=== PATIENT | male | born 1940 | race Caucasian/White ===

== ENCOUNTER 2019-08-12 10:52 | Inpatient (IN) | payer OTHER ==
[~2019-08-12] VITALS: Ht 172.7 cm; Wt 97.3 kg
--- NOTE | ~2019-08-12 | HC ---
[facility] [address] [place] [address] CONSULTATION Name: HORACE NAIR Room #: 354-P ADM IN .R.#: [id number] Admission: 08/12/19 Attend Phys: Wilmar Chaparro MD Discharge: Date of : 42 Report #: [id number] THIS REPORT FOR: //name// CC: Topher Gill DATE OF SERVICE: 08/12/2019 NEPHROLOGY CONSULTATION REASON FOR CONSULTATION: Elevated creatinine and volume overload. HISTORY OF PRESENT ILLNESS: This is a 79-year-old male with multiple chronic medical conditions. Briefly those include some coronary artery disease, chronic kidney disease, chronic hypertension, peripheral vascular disease, type 2 diabetes and some apparent COPD. His most recent history is that of worsening peripheral vascular disease. In 04/2019, he had a right fem-pop bypass done by Dr. Murali Brown at [facility]. He was discharged from there and spent some time at a [facility]. He was readmitted after that in early 06/2019 and had a left fem-pop bypass done as he done fairly well with the right side. Shortly after that, he developed infection of the surgical wound in the left inguinal area and got readmitted to the hospital. According to the son, cultures were negative, but he was placed on broad-spectrum antibiotics and improved. By the end of June, he was discharged back from [facility], but developed C. diff diarrhea. He was admitted to the [facility] and started on oral vancomycin for the C. diff. He is now just a couple of days from completing that course of therapy and states that his diarrhea has improved. In the meantime, he started having increasing amounts of edema, abdominal distention and now dyspnea. All of this worsened to the point that he was admitted 2 days ago to the [facility]. He has a chronic creatinine level of about 2.1, but his creatinine level has been more in the 3.6-3.9 range. For some reason, he was given IV fluid in spite of the fact that he is massively edematous and dyspneic. With that fluid, he has become yet more dyspneic. His urine output has been down. Additionally, he has had a Diggs catheter placed as he has intermittent problems with poor bladder emptying. He also had a urinalysis done at [facility] showing Klebsiella urinary tract infection, which was widely sensitive. As things continue to worsen, he was transferred here to [facility] this afternoon for increased amounts of care. From a renal standpoint, the patient has previously documented chronic kidney disease. He knows that his baseline creatinine level is 2.1. He was followed for years by Dr. Darrian Veronica at [facility] and more recently over the past couple of years by Dr. Payne in [place]. He never recalls having this much edema previously. He never recalls having this much dyspnea. [address] [address] CONSULTATION Name: HORACE NAIR Room #: 354-P ADM IN M.R.#: [id number] Admission: 08/12/19 Attend Phys: Wilmar Chaparro MD Discharge: Date of : 42 Report #: [id number] Unfortunately, I do not have records to the [facility] hospitalization at this point. He does not recall having arteriography prior to that, but there was some basis for doing the bilateral fem-pop bypasses. He says he has had the catheter in for the past couple of days. He has not been getting any nonsteroidals. I cannot find evidence of other nephrotoxic agents. PAST MEDICAL HISTORY: Longstanding CKD as noted above, coronary artery disease. He had previous coronary artery bypass graft surgery that was a four vessel bypass done years ago. He has had the recent bilateral fem-pop bypasses. He has had previously documented episodes of congestive heart failure and worsening pulmonary status as noted above. MEDICATIONS: As listed from [facility] include amlodipine 5 mg daily, aspirin 81 mg daily, atorvastatin 40 mg daily, Plavix 75 mg daily, insulin, Lasix 40 mg daily, multivitamin daily, pantoprazole 40 mg daily, some eyedrops, Proventil inhaler, tamsulosin 0.4 mg daily, Toprol 25 mg daily, oral vancomycin 250 mg 4 times daily and vitamin D. ALLERGIES: Reactions to AMIODARONE, NIACIN and HYDROCODONE. FAMILY HISTORY: No known renal disease. Father had colon cancer. Mother had a stroke. SOCIAL HISTORY: The patient is and lives in [place], [place]. He is retired. A couple of sons and a couple of grandchildren are present in the room at this time. REVIEW OF SYSTEMS: Widely positive. He has had the increasing dyspnea. He has chronic cough. He has had increasing abdominal distention and girth. He has had increasing peripheral edema both of the upper and lower extremities. His diarrhea has subsided. His appetite has been down. He is unaware of fevers, chills or sweats. He has trouble voiding and had the Digsg catheter placed. He has been increasingly weak. Denies actual chest pain. PHYSICAL EXAMINATION: VITAL SIGNS: Heart rate is 80. On exam, respiratory rate 24 and moderately labeled. Blood pressure 108/75, oxygen saturation 96% on 4 liters per nasal cannula HEENT: Shows bilateral chronic capsule exophthalmos. Pupils are equal and reactive. Oral mucosa is moist without lesions. NECK: Veins shows possible distention on the right, but he has a very large neck, it is difficult to determine. Neck is otherwise unremarkable. CHEST: Shows bilateral decreased breath sounds with rales. CARDIOVASCULAR: Heart has a regular rate and rhythm with distant heart tones. ABDOMEN: Obese and distended. There is extensive abdominal wall edema present. There also appears to be a fluid wave present. Few bowel sounds are present. [facility] [address] [place] [address] CONSULTATION Name: HORACE NAIR Room #: 354-P ADM IN [facility] [place].#: [id number] Admission: 08/12/19 Attend Phys: Wilmar Chaparro MD Discharge: Date of : 42 Report #: [id number] Not dramatically tender. EXTREMITIES: Show 2+ bilateral upper extremity and 3+ bilateral lower extremity edema and scrotal edema. Both feet and toes are warm. I see no blue toes. Bilateral fem-pop incisions have healed other than a 1 cm area in the left inguinal area. LABORATORY AND DIAGNOSTIC DATA: Sodium 136, potassium 4.7, chloride 104, bicarbonate 19, BUN 96, creatinine 3.7, calcium 7.8, phosphorus 6.1, magnesium 2.0, total protein 6.2, albumin 2.5, AST 83, ALT 199. White count 10.6, hemoglobin 8.9, hematocrit 27.9. Differential on the white count, 79 neutrophils, 7 lymphs, 9 monocytes. TSH 2.33. Urinalysis not yet back. Chest x-ray not yet done. ASSESSMENT: 1. Massive volume overload in the face of chronic kidney disease with worsening creatinine level. He has anasarca. He is dyspneic. We will look at his chest x-ray as he likely has some pulmonary edema. He needs aggressive diuresis. He certainly does not need additional IV fluids at this point. He has been given a bolus of Lasix already ordered by Dr. Toro. I will start him on a continuous infusion of furosemide at 10 mg per hour. He has a Diggs catheter and we will closely monitor urine output. He will continue on nasal oxygen. As far as his kidney function goes, his creatinine level is elevated over his baseline. He has been through 2 recent vascular surgeries, a postop wound infection, C. diff and now this episode. He very well, knows his baseline creatinine is 2.1. Remarkably, he has no blue toes. We will have to access his [facility] records to see what else went on with all of that as to whether he has had additional risk of cholesterol emboli or any other changes to his kidneys from nephrotoxic exposures. There is a possibility, but we can get him well diuresed with IV Lasix alone. We can always add some metolazone, but if that does not occur, he might need some dialysis for ultrafiltration. I do not think we are looking at dialysis right now, but we will certainly keep that in mind going forward. Hopefully, we can get him adequately diuresed. 2. Congestive heart failure with lung findings suggesting pulmonary edema. If he gets at all unstable, we will move him to the ICU. 3. Recent Clostridium difficile. He is completing therapy. He is less symptomatic and certainly his abdomen does not look to be toxic. 4. Recent bilateral fem-pop bypasses with infection of the left side, both legs are warm at this time. 5. History of chronic obstructive pulmonary disease only making his pulmonary status worse. 6. Congestive heart failure as noted. 7. Prior history of coronary artery bypass graft surgery. PLAN: 1. We will start him on the Lasix drip at 10 mg per hour. 2. Closely monitor intake and output. [facility] [address] [place] [address] CONSULTATION Name: HORACE NAIR Room #: 354-P [facility] IN .R.#: [id number] Admission: 08/12/19 Attend Phys: Wilmar Chaparro MD Discharge: Date of : 42 Report #: [id number] 3. With the recent urinary tract infection with Klebsiella and its sensitivity to Cipro, put him on oral Cipro and hopefully we would not exacerbate his C. diff to much with more broad-spectrum antibiotics. 4. Closely monitor electrolytes and hemodynamics. 5. We will follow along with this very ill patient. By: 1858 01 Gurpreet Wilkins MD /nt
[2019-08-12 15:00] VITALS: BP 108/75
[2019-08-12] MEDS ORDERED: ATHENOL325 MG PO (15:36)
[2019-08-12] MEDS ORDERED: CEFTRIAXON1 GM/50 ML IV (15:37)
[2019-08-12] MEDS ORDERED: VISBIOME 112.51 EACH PO (15:40)
[2019-08-12] MEDS ORDERED: ONDANSETRON4 MG/2 ML IV (15:41)
[2019-08-12] MEDS ORDERED: PROAIR HFA8.5 GM INH (15:42)
[2019-08-12] MEDS ORDERED: FLOMAX0.4 MG PO (15:42)
[2019-08-12] MEDS ORDERED: LANTUS SUBQ (15:43)
[2019-08-12] MEDS ORDERED: PROTONIX40 M2 PO (15:44)
[2019-08-12] MEDS ORDERED: TOPROL XL25 MG PO (15:44)
[2019-08-12] MEDS ORDERED: VANACOF DM LIQ240 ML PO (15:45)
[2019-08-12] MEDS ORDERED: IPRAT-ALBUT 0.5-3 ML INH (15:50)
[2019-08-12] MEDS ORDERED: DORZOLAMIDE 2%10 ML EA. EYE (16:30)
[2019-08-12] MEDS ORDERED: BRIMONIDINE TART5 ML EA. EYE (16:34)
[2019-08-12] MEDS ORDERED: LATANOPROST EA. EYE (16:36)
[2019-08-12 16:40] LABS: ABSOLUTE NEUTROPHILS 8.4 thou/uL (1.4-8.2); BASOPHILS 0.9 % (0.0-2.0); EOSINOPHILS 2.8 % (0.0-3.0); HEMATOCRIT 27.9 % (42.0-52.0); HEMOGLOBIN 8.9 gm/dL (14.0-18.0); LYMPHOCYTES 7.4 % (24.0-44.0); MCH 30.3 pg (26.0-34.0); MCHC 31.8 g/dL (28.0-37.0); MCV 95.2 fL (80.0-100.0); PLATELET COUNT 211 thou/uL (150-400); POLYS 79.9 % (36.0-66.0); RBC 2.93 mil/uL (4.50-6.00); WBC 10.6 thou/uL (4.0-11.0)
[2019-08-12] MEDS ORDERED: NORVASC 2.5 MG2.5 M1 PO (16:53)
[2019-08-12] MEDS ORDERED: ASA81BEC PO (16:54)
[2019-08-12 16:55] LABS: APTT 26.7 Seconds (24.5-32.8); INR 1.1; PROTIME 11.7 Seconds (9.3-11.4)
[2019-08-12] MEDS ORDERED: PLAVIX 75 MG TA75 MG PO (16:55)
[2019-08-12] MEDS ORDERED: VITAMIN D3 PO (17:00)
[2019-08-12 17:02] LABS: ALBUMIN 2.5 g/dL (3.4-5.0); ANION GAP 13 mmol/L (7-16); BUN 96 mg/dL (7-18); CALCIUM 7.8 mg/dL (8.5-10.1); CHLORIDE 104 mmol/L (98-107); CO2 19 mmol/L (21-32); CREATININE 3.7 mg/dL (0.7-1.3); GLUCOSE 182 mg/dL (74-106); PHOSPHORUS 6.1 mg/dL (2.5-4.9); POTASSIUM 4.7 mmol/L (3.5-5.1); SGOT 83 U/L (15-37); SGPT 199 U/L (30-65); SODIUM 136 mmol/L (136-145); TOTAL BILIRUBIN 0.6 mg/dL (<0.1-1.0); TOTAL PROTEIN 6.2 g/dL (6.4-8.2); TROPONIN-I <0.06 ng/mL (<0.06)
--- NOTE | 2019-08-12 17:47 | NUR ---
PATIENT ADMIT TO UNIT AT 1500. A/O X4. SOB WITH ANXIOUS. ASKING 3L/NC. ASSISTED TO BSC HAS BM THAT IS FORMED. PATIENT DENIES PAIN. MULTI CONSULT CALLED. FAMILY AT BEDSIDE. WILL KEEP MONITOR.
[2019-08-12 19:06] LABS: % SATURATION 11 % (20-39); IRON 27 ug/dL (65-175); TIBC 241 ug/dL (250-450)
[2019-08-12 19:42] VITALS: BP 131/53
[2019-08-12 19:43] LABS: URINE BILIRUBIN NEGATIVE (Negative); URINE BLOOD 3+ (Negative); URINE CLARITY CLEAR; URINE COLOR YELLOW; URINE GLUCOSE-RANDOM* NEGATIVE (Negative); URINE KETONES NEGATIVE (Negative); URINE NITRITE-REFLEX NEGATIVE (Negative); URINE PROTEIN (DIPSTICK) 2+ (Negative); URINE SPECIFIC GRAVITY 1.025 (1.005-1.035); URINE UROBILINOGEN 0.2 E.U./dl (0.2-1.0)
[2019-08-12 19:49] LABS: URINE LEUKOCYTES-REFLEX 1+ (Negative)
[2019-08-12 20:18] LABS: HYALINE CASTS 0-3 Few /LPF (None Seen); SQUAMOUS 0-3 Few /LPF (0-3)
[2019-08-12 20:19] LABS: URINE RBC 3-10 Few /HPF (0-2); URINE WBC-REFLEX 6-15 Few /HPF (0-5)
[2019-08-12 20:20] LABS: AMORPHOUS URATES Few /LPF (None Seen); BACTERIA-REFLEX 1-9 Few /HPF (None Seen)
[2019-08-13 00:39] VITALS: BP 151/49
--- NOTE | 2019-08-13 02:58 | NUR ---
PT WAS DIRECT ADMIT FROM [facility]. PT HAS HIGH LEVEL OF ANXIETY WITH CREATES SELF DEFEATING BEHAVIORS. PT REMOVES CPAP AND IS RESTLESS. ORDERED HS DOSE OF 1MG ATIVAN. GAVE SOME RELIEF FOR A COUPLE HOURS, THEN BACK TO SAME BEHAVIORS. EDUCATED PT ON CONSTRUCTIVE BEHAVIORS THAT WILL HELP REDUCE ANXIETY, BUT NOT EFFECTIVE. PT A/OX4, AND UP WITH X1 TO BSC. POC WITH IVF LASIX STARTED. HOURLY ROUNDING.
[2019-08-13 05:30] VITALS: BP 142/53
[2019-08-13 06:15] LABS: CALCIUM 8.4 mg/dL (8.5-10.1); CREATININE 3.8 mg/dL (0.7-1.3)
[2019-08-13 08:09] VITALS: BP 112/81
--- NOTE | 2019-08-13 09:34 | 2DMMODE ---
[facility] [address] [place] [address] 2 D/M-MODE ECHOCARDIOGRAM Name: HORACE NAIR Room #: 354-P [facility] IN .R.#: [id number] Admission: 08/12/19 Attend Phys: Wilmar Chaparro MD Discharge: Date of : 42 Report #: [id number] THIS REPORT FOR: //name// APPROVED REPORT Study performed: 08/13/2019 08:18:08 EXAM: Comprehensive 2D, Doppler, and color-flow Echocardiogram Patient Location: Bedside Room #: 354 Status: routine BSA: 1.86 HR: 77 bpm BP: 142/53 mmHg Rhythm: NSR Other Information Study Quality: Technically Difficult and Technically Limited Technically limited study due to body habitus, uncooperative patient, inability to position patient. Indications Congestive Heart Failure Diabetes Dyspnea CAD Hypertension/HDD HLD Echo Enhancing Agent Indication: Endocardial border delineation Agent(s) / Amount(s) Used: Optison 3 cc 2D Dimensions RVDd: 47.31 mm IVSd: 13.44 (7-11mm) LVOT Diam: 19.71 (18-24mm) LVDd: 53.75 mm PWd: 13.71 (7-11mm) Ascending Ao: 30.53 (22-36mm) LVDs: 34.75 (25-40mm) Aortic Root: 28.86 mm IVC: 24.00 mm Volumes Left Atrial Volume (Systole) Single Plane 4CH: 63.23 mL Single Plane 2CH: 96.37 mL [facility] [place] [address] 2 D/M-MODE ECHOCARDIOGRAM Name: HORACE NAIR Room #: 354-P ADM IN .R.#: [id number] Admission: 08/12/19 Attend Phys: Wilmar Chaparro MD Discharge: Date of : 42 Report #: [id number] ESV Index: 46.00 mL/m2 Aortic Valve AoV Peak Andres.: 2.30 m/s AO Peak Gr.: 21.21 mmHg LVOT Max P.22 mmHg AO Mean Gr.: 8.17 mmHg LVOT Mean P.51 mmHg AO V2 Mean: 1.28 m/s LVOT Max V: 1.14 m/s AO V2 VTI: 45.10 cm LVOT Mean V: 0.74 m/s ASHA (VTI): 1.77 cm2 LVOT V1 VTI: 26.21 cm ASHA Vmax: 1.51 cm2 AI Vmax: 3.42 m/s SV (LVOT): 79.91 mL AI Starke: 4.89 m/s2 AI PHT: 202.79 ms Mitral Valve E/A Ratio: 1.1 MV Decel. Time: 255.53 ms MV E Max Andres.: 1.39 m/s MV A Andres.: 1.25 m/s MV PHT: 74.10 ms IVRT: 86.51 ms Pulmonary Valve PV Peak Andres.: 1.17 m/s PV Peak Gr.: 5.60 mmHg Pulmonary Vein P Vein S: 0.53 m/s P Vein A: 0.22 m/s P Vein D: 0.64 m/s P Vein A Dur.: 96.9 msec P Vein S/D Ratio: 0.83 Tricuspid Valve TR Peak Andres.: 3.04 m/s RAP Estimate: 15.00 mmHg TR Peak Gr.: 36.99 mmHg PA Pressure: 52.00 mmHg Left Ventricle The left ventricle is normal size. Regional wall motion is not well visualized but grossly normal. Mild concentric left ventricular hypertrophy. The left ventricular systolic function is normal. The left ventricular ejection fraction is within the normal range. LVEF is 50%. Moderate diastolic dysfunction is present (pseudonormal filling). Right Ventricle Right ventricle is moderately dilated. Right ventricular systolic function is mildly reduced. [facility] [address] [place] [address] 2 D/M-MODE ECHOCARDIOGRAM Name: HORACE NAIR Room #: 354-P [facility] IN .R.#: [id number] Admission: 08/12/19 Attend Phys: Wilmar Chaparro MD Discharge: Date of : 42 Report #: [id number] Atria Left atrium is moderately dilated. Right atrium is mildly dilated. Aortic Valve Aortic valve is mild-moderately calcified. Mild to moderate aortic regurgitation. There is trace to mild valvular aortic stenosis. Calculated aortic valve area is 1.8 cm2 with maximum pressure gradient of 21 mmHg and mean pressure gradient of 8 mmHg. Mitral Valve Mild mitral annular calcification. Trace to mild mitral regurgitation. No evidence of mitral valve stenosis. Tricuspid Valve The tricuspid valve is normal in structure. Moderate tricuspid regurgitation. PAP is estimated at 50 mmHg Pulmonic Valve Pulmonic valve is not well visualized. Great Vessels The aortic root is normal in size. IVC is dilated and collapses <50% with inspiration. Pericardium There is no pericardial effusion. <Conclusion> The left ventricular systolic function is normal. Regional wall motion is not well visualized but grossly normal. LVEF is 50%. Moderate diastolic dysfunction Aortic valve is mild-moderately calcified, mildly stenotic Mild to moderate aortic regurgitation. Calculated aortic valve area is 1.8 cm2 with maximum pressure gradient of 21 mmHg and mean pressure gradient of 8 mmHg. Mild mitral annular calcification. Trace to mild mitral regurgitation. Moderate tricuspid regurgitation. Pulmonary artery pressure estimated [address] [address] 2 D/M-MODE ECHOCARDIOGRAM Name: HORACE NAIR Room #: 354-P [facility] IN M.R.#: [id number] Admission: 08/12/19 Attend Phys: Wilmar Chaparro MD Discharge: Date of : 42 Report #: [id number] at 50 mmHg There is no pericardial effusion. <ELECTRONICALLY SIGNED> By: Matheus Toro MD, FAC 08/13/19932 2 2 Matheus Toro MD, FAC /INF
--- NOTE | 2019-08-13 09:44 | EKG ---
[address] [place] [address] ELECTROCARDIOGRAM REPORT Name: HORACE NAIR Room #: 354-P ADM IN M.R.#: [id number] Admission: 08/12/19 Attend Phys: Wilmar Chaparro MD Discharge: Date of : 42 Report #: [id number] THIS REPORT FOR: //name// [facility] Test Date: 2019-08-12 Test Time: 18:11:15 Pat Name: HORACE NAIR Department: Room: 354 P Gender: M Buffing Line Set Up Worker: Vincent LOFTON : 1940 Requested By: Matheus Toro Order Number: [id number] MD: Matheus Toro Measurements Intervals [place] Rate: 71 P: 44 [place]: 156 QRS: 54 QRSD: 143 T: 32 QT: 448 QTc: 487 Interpretive Statements Sinus rhythm Atrial premature complex IVCD, consider atypical RBBB Poor R wave progression Compared to ECG 11/10/2007 12:18:39 Atrial premature complex(es) now present Right bundle branch block is now present Electronically Signed On 08-13-2019 9:43:48 EVENT MANAGEMENT CONSULTANT by Matheus Toro [email or web address] <ELECTRONICALLY SIGNED> By: Matheus Toro MD, [facility] 08/13/19 0943 10 10 Matheus Toro MD, [facility] /EPI
[2019-08-13 12:01] VITALS: BP 106/55
--- NOTE | 2019-08-13 14:06 | NUR ---
DISCHARGE PLANNING. DISCHARGE DATE NOT STATED AT THIS TIME. POST ACUTE RECOMMENDED AT DISCHARGE. PATIENT REFERRAL FAXED TO [facility] PER REQUEST. CALL PLACED TO MARK NAJERA, DEVELOPMENT REP, FOR [facility] TO NOTIFY OF PATIENTS REFERRAL. VOICEMAIL LEFT FOR HER. UNIT SW AWARED. FOLLOWING TO ASSIST.
--- NOTE | 2019-08-13 14:23 | NUR ---
INITIAL ASSESSMENT: Received consult for discharge planning. ANAMIKA reviewed chart and spoke with nursing and attending physician. Pt was transferred to [facility] from [facility] due to hypoxic respiratory failure/SCOTT/CKD/Anemia. GI and Nephrology consulted. Pt is on lasix gtt and may need to start dialysis pending renal function. ANAMIKA met with pt and at bedside. Introduced role of SW. Pt was sleeping on/off during SW visit. Pt's provided info. Pt is normally alert/orientated x 4. [place] Prior to admission, pt was using a walker. Pt has a cpap machine at home provide by [facility] ( ). Pt's states pt's cpap machine stopped working yesterday and needs to be repaired. Pt was not on O2 prior to admission. Pt's states that they have not had HH in the past, as HH providers do not service the area where pt and spouse live. SW confirmed pt's home address. Pt's PCP is Dr. Topher Ugarte. Pt's states that pt has been to the swing bed unit at [facility], and they would prefer to go there if possible. Will need insurance authorization. Unsure of discharge timeframe. marketing planner to fax info to [facility] swing bed intake. Awaiting additional therapy notes. ANAMIKA spoke with Nicole at [facility], who confirm pt is on service with them. They will repair pt's home cpap machine and provide a loaner to pt to use in the meantime. Lengthy conversation with pt's regarding medical condition/complications since surgery in April at [facility]. Pt's states that he has been in/out of hospitals since that time, and they are hoping pt will be able to improve and eventually return to his prior level of functioning. ANAMIKA is following to assist as needed with discharge planning.
--- NOTE | 2019-08-13 15:20 | NUR ---
ASSUMED CARE OF PT AT 0700. PT AOX3 RESTLESS ANXIOUS BUT COOPERATIVE. ON 2LNC/CPAP THROUGHOUT DAY. PRESENT AT BEDSIDE. NO STOOLS. SPEECH EVAL REC NECTAR FLUIDS. SINUS ON TELEMETRY. UP W/ ASSIST TO BSC. MANY CONSULTS TODAY. PT PROGRESSING TOWARD POC GOALS.
[2019-08-13 15:46] VITALS: BP 123/48
[2019-08-13 19:11] VITALS: BP 127/50
[2019-08-14] MEDS ORDERED: ULTRAM50 MG PO (00:48)
[2019-08-14 04:30] VITALS: BP 123/59
[2019-08-14 04:52] LABS: ALBUMIN 2.6 g/dL (3.4-5.0); CALCIUM 8.4 mg/dL (8.5-10.1); CREATININE 3.8 mg/dL (0.7-1.3); PHOSPHORUS 6.7 mg/dL (2.5-4.9); POTASSIUM 5.1 mmol/L (3.5-5.1)
--- NOTE | 2019-08-14 05:49 | NUR ---
ASSUMED CARE AT 1900. OBTAINED ORDERS FOR MELATONIN TO HELP PT SLEEP FAMILY DIDN'T WANT HIM TAKING ATIVAN, STATING IT MADE PT MORE CONFUSED. AT MIDNIGHT ASSESSMENT, PT C/O OF LEFT HIP PAIN; OBTAINED ORDERS FOR TYLENOL AND TRAMADOL; GAVE ONE DOSE OF TRAMADOL OVERNIGHT, PT REPORTED PAIN RELIEF. PT GRADUALLY MORE CONFUSED OVERNIGHT, AFTER [id number], KEPT TAKING CPAP OFF, WANTING HIS LY OUT, TOSSING BLANKETS ON THE FLOOR, ETC. PT REQUIRED FREQ REORIENTATION AND EXPLANATION ABOUT LIMITING FLUIDS, ONLY DRINKING THICKENED LIQUIDS TO PREVENT ASPIRATION, AND NEEDING ACCURATE I&O WITH THE LASIX DRIP AND LY. NO OTHER CONCERNS, WILL CONTINUE TO MONITOR.
[2019-08-14 08:09] VITALS: BP 123/46
--- NOTE | 2019-08-14 09:14 | NUR ---
WOUND CONSULT; ASSESSED THE LEFT MEDIAL LEG AND THE LEFT GROIN/ABD FOLD. THE LEFT MED LEG IS HEALED ONLY VIABLE SCABS REMAIN. THE LEFT GROIN WOUNDBED IS SLOUGHY. NO ERYTHEMA OR ANY S/S OF INFECTION. RECOMMENDATION; THERAHONEY TO LEFT GROIN, COVER WITH A BOARDER FOAM M/W/F RN NOTIFIED
[2019-08-14 11:41] VITALS: BP 134/50
[2019-08-14 11:49] LABS: HEMATOCRIT 26.1 % (42.0-52.0); HEMOGLOBIN 8.3 gm/dL (14.0-18.0)
--- NOTE | 2019-08-14 15:24 | NUR ---
SW reviewed chart and spoke with nursing and attending physician. Pt remains on lasix gtt. No weekend discharge planned. Pt and request pt go to [facility] Swing Bed Unit. enterprise resource planner to follow up with intake at [facility]. ANAMIKA is following to assist as needed with discharge planning.
[2019-08-14 16:12] VITALS: BP 140/54
--- NOTE | 2019-08-14 18:30 | NUR ---
PATIENT GETTING MORE ALERT TODAY. UP WALK WITH PT, ON LASIX GTT. SLOWLY TOWARDS POC GOALS.
[2019-08-14 19:33] VITALS: BP 132/53
[2019-08-14] MEDS ORDERED: TIMOLOL MALEATE5 M2 OPHTHALMIC (20:09)
--- NOTE | 2019-08-15 02:50 | NUR ---
ASSUMED CARE AT 1900. PT HAS IMPROVED MENTATION THIS SHIFT, ANSWERING QUESTIONS APPROPRIATELY, LESS IMPULSIVE BEHAVIORS. REPORTS SOME SOB EVEN AT REST, IMPROVED WHEN ON THE CPAP RATHER THAN JUST NC. REPORTS MODERATE PAIN IN LEFT HIP AND KNEE, GAVE TRAMADOL WITH HS MEDS. HS BLOOD SUGAR WAS 97, NO INSULIN GIVEN. CHECKED HOME MEDS INTO THE PHARMACY; OBTAINED ORDERS TO START HOME EYE DROP REGIMEN. HAS SMALL, DARK STOOLS. LY PUTTING OUT OSEGUERA COLORED URINE, IV LASIX INFUSING. NO FURTHER CONCERNS, WILL CONTINUE TO MONITOR.
[2019-08-15 03:21] VITALS: BP 125/39
[2019-08-15 03:56] LABS: ALBUMIN 2.5 g/dL (3.4-5.0); CREATININE 3.8 mg/dL (0.7-1.3); PHOSPHORUS 6.4 mg/dL (2.5-4.9); POTASSIUM 4.5 mmol/L (3.5-5.1)
[2019-08-15 03:58] LABS: HEMOGLOBIN 8.5 gm/dL (14.0-18.0); MCH 29.9 pg (26.0-34.0); MCHC 31.6 g/dL (28.0-37.0); MCV 94.7 fL (80.0-100.0); RBC 2.84 mil/uL (4.50-6.00); RDW 18.9 % (10.5-14.5); WBC 7.2 thou/uL (4.0-11.0)
--- NOTE | 2019-08-15 07:39 | NUR ---
patient is alert to self, situation. patient has lasix drip and layton. patient is anxious to discharge home. patients dressing is clean dry and intact. patient is on 3l nc and c pap hs. patient is achs accuchecks. patient is resting comfortably in bed. pain treated with medication. wcm.
[2019-08-15 07:47] VITALS: BP 120/52
[2019-08-15 11:57] VITALS: BP 122/36
[2019-08-15 12:39] LABS: BE(vivo) -8.6 mmol/L (-2 to +3); HCO3 16.9 mmol/L (22.0-26.0); PCO2 34.7 mmHg (35.0-45.0); PO2 68.9 mmHg (80.0-100.0); sO2 92.4 % (92.0-98.0)
[2019-08-15 12:43] LABS: pH 7.305 (7.360-7.450)
[2019-08-15 16:12] VITALS: BP 142/54
[2019-08-15 19:40] VITALS: BP 136/57
--- NOTE | 2019-08-15 20:44 | NUR ---
PATIENT ALERT AND ORIENTED WITH SON AND [id number] AT BEDSIDE. WEIGHT COMPLETED AFTER BREAKFAST. 254LBS. CONTINUES ON DIURETICS AND HAS GOOD URINE OUTPUT AND ABLE TO WALK TO BATHROOM FOR BM. BM TODAY AND SMALL FORMED STOOL. PATIENT UP TO CHAIR THIS AM.
[2019-08-16 03:53] LABS: HEMATOCRIT 26.9 % (42.0-52.0); HEMOGLOBIN 8.5 gm/dL (14.0-18.0); MCH 30.2 pg (26.0-34.0); MCHC 31.7 g/dL (28.0-37.0); MCV 95.3 fL (80.0-100.0); RBC 2.83 mil/uL (4.50-6.00); RDW 18.8 % (10.5-14.5); WBC 6.8 thou/uL (4.0-11.0)
[2019-08-16 04:01] LABS: ALBUMIN 2.6 g/dL (3.4-5.0); CALCIUM 8.3 mg/dL (8.5-10.1); CREATININE 3.8 mg/dL (0.7-1.3); PHOSPHORUS 6.8 mg/dL (2.5-4.9); POTASSIUM 4.4 mmol/L (3.5-5.1)
--- NOTE | 2019-08-16 04:11 | NUR ---
ASSUMED CARE AT 1900. PT MORE ANXIOUS THIS SHIFT THAN PREVIOUS NIGHT, WITH INCREASING CONFUSION DURING THE NIGHT. SLEEPING POORLY DESPITE TWO DOSES OF MELATONIN, AWAKE FREQ AND CALLING OUT. UP MULTIPLE TIMES TO BSC FOR BM, USUALLY HAVING VERY SMALL FORMED BALLS OF STOOL, BUT HAVE A MEDIUM SOFT/FORMED STOOL ONE TIME. IV LASIX INFUSING AT 20 ML/HR, LY DRAINING YELLOW URINE. GAVE TRAMADOL x1 FOR LEFT HIP PAIN. NO FURTHER CONCERNS, WILL CONTINUE TO MONITOR.
[2019-08-16 04:30] VITALS: BP 131/67
[2019-08-16 07:31] VITALS: BP 133/46
[2019-08-16 11:42] VITALS: BP 127/43
[2019-08-16 15:19] VITALS: BP 126/49
--- NOTE | 2019-08-16 18:05 | NUR ---
A/O X4. ON LASIX GTT AT 22OML /HR. UP WITH ASSISTED .PROGRESSING TOWARDS POC GOALS.
[2019-08-16 19:20] VITALS: BP 126/45
[2019-08-17 04:44] VITALS: BP 133/49
--- NOTE | 2019-08-17 04:48 | NUR ---
PT MAKING PROGRESS TOWARDS GOALS. LUNGS REPORTEDLY COARSE. ONLY NOTED DIMINISHED LUNG SOUNDS OVERNIGHT. PT HAS DENIED ANY SOA AT REST. UP TO CHAIR THIS MORNING WITH O2 AT 2L PER NC WITH NO OBSERVABLE SOA TRANSFERING TO THE CHAIR.
[2019-08-17 05:59] LABS: ALBUMIN 2.6 g/dL (3.4-5.0); CALCIUM 8.3 mg/dL (8.5-10.1); CREATININE 3.7 mg/dL (0.7-1.3); PHOSPHORUS 6.2 mg/dL (2.5-4.9); POTASSIUM 3.8 mmol/L (3.5-5.1)
[2019-08-17 07:57] VITALS: BP 134/55
--- NOTE | 2019-08-17 10:31 | NUR ---
WOUND CARE F/U assessed wounds w/ operations staff specialist security CYRUSOLA, left groin wound healing, scant whitish yellow slough in wound,more pink viable tissue present, thigh wounds healing,dry scabs present, leave open to air, pt cooperative RECOMMENDATIONS; cont w/ therahoney to wound left groin, 3x week and prn, cont on low air loss mattress pump, operations staff specialist security aware
[2019-08-17 11:32] VITALS: BP 139/49
--- NOTE | 2019-08-17 15:14 | NUR ---
SW reviewed chart and spoke with nursing and attending physician. Pt is slowly progressing towards goals for discharge. Pt remains on IV lasix. logistics planner faxed clinical/therapy updates to [facility] for review. ANAMIKA met with pt and at bedside. Pt just worked with physical therapy. Pt's asked about pt being evaluated for 5N. Pt's is hopeful that pt will qualify, as he has had multiple hospitalization over the past several months. ANAMIKA explained admission criteria for 5N and need for insurance authorization. Pt and verbalized understanding. ANAMIKA requested 5N consult from attending physician. ANAMIKA notified 5N vocational rehabilitation specialist of new referral/consult. 5N rehab physician or PAYROLL SUPERVISOR to evaluate pt tomorrow. ANAMIKA is following to assist as needed with discharge planning.
--- NOTE | 2019-08-17 18:35 | NUR ---
ASSUMED CARE @ 0700 08/17/19, ASSESSMENTS AND VSS COMPLETE PER CCTELE ORDERS. DR NOBLE AND GIANFRANCO HERE DURING THE DAY TO SEE PT. WOUND CHANGED BY WOUND CARE NURSE. PROGRESSING TOWARDS PLAN OF CARE
[2019-08-17 19:13] VITALS: BP 152/62
[2019-08-18 03:37] VITALS: BP 134/50
[2019-08-18 07:51] VITALS: BP 135/76
[2019-08-18 07:58] LABS: ALBUMIN 2.9 g/dL (3.4-5.0); CALCIUM 9.1 mg/dL (8.5-10.1); CREATININE 3.5 mg/dL (0.7-1.3); PHOSPHORUS 6.3 mg/dL (2.5-4.9); POTASSIUM 3.7 mmol/L (3.5-5.1)
--- NOTE | 2019-08-18 09:51 | NUR ---
PATIENT SEEN THIS DATE BY [facility] [employer] WITH DR. RUSH. PATIENT IS A CANDIDATE [place] [address] [place] [address]. PATIENT HAS [employer] ADVANTAGE PLAN. AUTHORIZATION PROCESS INITIATED THIS DATE. BROCHURE TAKEN TO PATIENT/FAMILY BY LIAISON. HUC INFORMED.
--- NOTE | 2019-08-18 10:54 | NUR ---
NUTRITION RECOMMENDATIONS: 1) Recommend considering addition of phosphate binder w/ meals due to peristently elevated phos labs ranging 6.2-6.8 mg/dl in recent days. 2) Consider adding low phos, low sodium restrictions to diet order. 3) RD will limit meals to 1 dairy serving/day while phos remains HIGH.
[2019-08-18 11:32] VITALS: BP 142/59
--- NOTE | 2019-08-18 12:01 | NUR ---
SW reviewed chart and spoke with nursing. 5N consult ordered. Rehab [facility] evaluated pt and 5N will submit for insurance authorization. Anticipate pt will be ready for discharge later this week. ANAMIKA is following to assist as needed with discharge planning.
[2019-08-18 15:39] VITALS: BP 143/62
[2019-08-18 19:13] VITALS: BP 137/59
--- NOTE | 2019-08-18 22:27 | NUR ---
PT RESTING IN BED WITH CPAP ON. SPENDING THE NIGHT. LY TO DD, IV LASIX CONTINUES. PT SMILING TALKING WITH . PRN FOR CHRONIC BACK PAIN X 1. BLE EDEMA ANKLES. R GROIN POST PROCEDURE WOUND DRESSING INTACT.
--- NOTE | 2019-08-19 02:17 | NUR ---
PT UP X 2 FOR BM, SOFT FORMED TONIGHT.
[2019-08-19 06:27] LABS: ALBUMIN 2.7 g/dL (3.4-5.0); CALCIUM 8.8 mg/dL (8.5-10.1); CREATININE 3.3 mg/dL (0.7-1.3); PHOSPHORUS 6.1 mg/dL (2.5-4.9); POTASSIUM 3.4 mmol/L (3.5-5.1)
[2019-08-19 11:36] VITALS: BP 137/56
[2019-08-19 15:12] VITALS: BP 136/43
[2019-08-19 19:05] VITALS: BP 148/59
--- NOTE | 2019-08-19 19:15 | NUR ---
PT ON LASIX GTT WITH FLUID RESTRICTION... REDUCED STATUS TO MED SURG TODAY AND PLANS POSSIBLE 5N OR SAT...
[2019-08-20 03:10] VITALS: BP 143/54
[2019-08-20 05:44] LABS: ALBUMIN 2.7 g/dL (3.4-5.0); CALCIUM 9.1 mg/dL (8.5-10.1); CREATININE 3.2 mg/dL (0.7-1.3); PHOSPHORUS 5.5 mg/dL (2.5-4.9); POTASSIUM 3.5 mmol/L (3.5-5.1)
--- NOTE | 2019-08-20 05:56 | NUR ---
Patient was turned q2 and heels were elevated through NOC. Nursing will continue to monitor.
[2019-08-20 08:03] VITALS: BP 150/56
[2019-08-20 16:21] VITALS: BP 134/55
--- NOTE | 2019-08-20 18:27 | NUR ---
PT is A&OX3, pt's vs and bs are stable, pt is contining Lasix 20mg / hr IV drip, pt's BLE edema has improved, pt has a good out put , pt has US done , showing large complex hematoma L Groin , no evidence of pseudoaneurysm or blood flow with the hematoma, we continue to monitor the hematoma, pt will be NPO afterMN for M2 capsule study tomorrow.
[2019-08-20 19:44] VITALS: BP 121/44
[2019-08-21 05:21] LABS: HEMATOCRIT 30.4 % (42.0-52.0); HEMOGLOBIN 9.8 gm/dL (14.0-18.0); MCHC 32.1 g/dL (28.0-37.0); MCV 93.5 fL (80.0-100.0); RBC 3.25 mil/uL (4.50-6.00); RDW 18.2 % (10.5-14.5); WBC 8.4 thou/uL (4.0-11.0)
[2019-08-21 05:40] LABS: ALBUMIN 2.7 g/dL (3.4-5.0); CALCIUM 8.5 mg/dL (8.5-10.1); CREATININE 3.2 mg/dL (0.7-1.3); PHOSPHORUS 5.4 mg/dL (2.5-4.9); POTASSIUM 3.7 mmol/L (3.5-5.1)
[2019-08-21 06:13] VITALS: BP 130/48
[2019-08-21 08:10] VITALS: BP 126/46
--- NOTE | 2019-08-21 09:31 | NUR ---
WOUND CARE F/U; no drsg on left groin wound, unsure if drsg fell off, wound healing, less whitish/yellow slough, pink viable tissue present edges of wound, thigh wound w/ less scabbing, healing, groin wound redressed w/ therahoney and border foam drsg, staff mechanical engineer informed RECOMMENDATIONS; CONT W/ THERAHONEY AND SILICONE BORDER DRSG TO GROIN WOUND 3X WEEK AND PRN, [place] AT BS
--- NOTE | 2019-08-21 10:14 | NUR ---
Nutrition: Seen per follow up. Pt is currently NPO for M2 capsule study today. Since last seen 08/18, pt w/ greatly improved PO intake. Increased from 40% at start of wk to near 80% meal average per last [address] briefly added daily Ensure Clear when po was poor, which pt drank 50-90% of. Dislikes taste and now that intake is high again, will discontinue per pt request. Heart healthy diet restrictions were added to mechanical chopped diet on 08/20 for reduced Na needs (ongoing diuresis continues w/ IV Lasix). SCOTT on CKD. Down 32# in 5 days from 114.26 kg on 08/16 -> 99.451 kg on 08/21. K+ WNL. Phos remains high at 5.4 mg/dL per daily labs (down from 6.8 on 08/16). RD reminded pt of goal to continue to limit dairy to ~1 serving/day. As pt NPO for breakfast w/ no milk, will allow yogurt with next meal. Change to low nutrition risk now.
--- NOTE | 2019-08-21 10:16 | NUR ---
CALLED RECEIVED FROM [facility] WITH DENIAL FOR ACUTE REHAB ADMISSION. REASON STATED WAS THAT PATIENT DOES NOT MEET ACUTE REHAB CRITERIA. IF ATTTENDING DESIRES, A PEER TO PEER CAN BE COMPLETED BY CALLING [phone] WITH CONTACT INFORMATION ON PHYSICIAN FOR PEER TO PEER DISCUSSION. PEER TO PEER MUST BE COMPLETED BY 08/24 AT 3pm. REFERENCE [id number]. CUSTOM HARVESTER INFORMED.
--- NOTE | 2019-08-21 14:00 | NUR ---
PT ALERT AND ORIENTED TIMES FOUR. VSS, LY TO DD. PT C/O BACK PAIN PRN MEDICATIONS CONTROLLING PAIN WELL. PT TOLERATES MEDS AND MEALS. PT UP WALKING TO RESTROOM WITH STANDBY ASSIST. PT AT BEDSIDE. PT SLOWLY PROGRESSING VIVIENNES POC GOALS.
--- NOTE | 2019-08-21 14:37 | NUR ---
ANAMIKA reviewed chart and spoke with nursing and attending physician. Pt remains on lasix gtt. ANAMIKA notified by 5N rehabilitation services aide that insurance has denied inpt acute rehab. Option for Peer to Peer offered. ANAMIKA provided info to attending physician: A PEER TO PEER CAN BE COMPLETED BY CALLING [phone] WITH CONTACT INFORMATION ON PHYSICIAN FOR PEER TO PEER DISCUSSION. PEER TO PEER MUST BE COMPLETED BY 08/24 AT 3pm. REFERENCE [id number]. ANAMIKA spoke with pt's via phone to discuss. Pt's family have also contacted pt's insurance ([facility]) to request an appeal if insurance continues to deny inpt acute rehab. Pt's states that pt has been in/out of hospitals since April and has yet to fully recover. [facility] is unable to accept pt due to him needing a high level of care. Pt's aware. ANAMIKA discussed with attending physician, who will do peer to peer review. ANAMIKA is following to assist as needed with discharge planning.
--- NOTE | 2019-08-21 16:46 | NUR ---
NOTIFIED BY DR ZUNIGA THAT HE DID COMPLETE P-P AND 5N ACUTE REHAB HAS BEEN DENIED. WILL NEED TO LOOK AT SKILLED OPTIONS.
--- NOTE | 2019-08-21 16:55 | NUR ---
GAVE PT LIST OF [facility] FACILITIES IN THIS AREA. HE WILL TALK OVER WITH HIS . PT LIVES IN [place] & MAY WANT TO LOOK AT PLACES CLOSER TO HOME.
--- NOTE | 2019-08-21 18:30 | NUR ---
RECEIVED PT TO RM 434 FROM [facility]WEST AT 1500. PT ALERT AND DOING WELL SITTING UP IN THE RECLINER VISITING W/ . PT ASSESSED AND NO CHANGE FROM AM ASSESSMENT. HOLTOR MONITOR FOR PILL CAM INTACT AND TO BE REMOVED AT 1999. PT ALLOWED TO EAT DIET OF 1400. NO C/O PAIN.
[2019-08-21 20:20] VITALS: BP 149/42
[2019-08-22 02:28] VITALS: BP 131/45
--- NOTE | 2019-08-22 02:44 | NUR ---
ASSUMED PT CARE AT 1900. PT COMPLAINING OF SEVERE BACK PAIN, MEDICATION PROVIDES SOME RELIEF. PILL CAM REMOVED AT 2099. CATHETER PATENT. LASIX DRIP INFUSING. NOTED RED BUTTOCKS, WILL CONTINUE TO MONITOR. SLEEPING NOW WITH CPAP ON.
[2019-08-22 05:05] LABS: ALBUMIN 2.7 g/dL (3.4-5.0); CALCIUM 8.5 mg/dL (8.5-10.1); CREATININE 3.2 mg/dL (0.7-1.3); PHOSPHORUS 4.8 mg/dL (2.5-4.9); POTASSIUM 3.5 mmol/L (3.5-5.1)
[2019-08-22 07:10] VITALS: BP 133/42
[2019-08-22 15:00] VITALS: BP 117/41
--- NOTE | 2019-08-22 18:06 | NUR ---
Assumed care at 0700. Pt a&ox4. On Lasix drip. Pt weight communicated to doctor. Lasix drip to continue. Diggs catheter to stay in place. C/o chronic lower back pain. Lidocaine patch applied. C-pap at night. Fall precautions in place. Will continue to monitor.
[2019-08-22 19:40] VITALS: BP 130/45
--- NOTE | 2019-08-23 04:40 | NUR ---
PATIENT ALERT AND ORIENTED X4. UP WITH ASSIST. RESTLESS. WENT FROM CHAIR TO BED AND BACK SEVERAL TIMES. CONTINUES ON LASIX DRIP. LY IN PLACE WITH LIGHT YELLOW URINE. ACCUCHECK WAS 234, RECIEVED 10UNITS LISPRO INSULIN. USES CPAP AT HS. SLEPT OFF AND ON DURING NIGHT. C/O PAIN. MED GIVEN.
[2019-08-23 05:41] LABS: ALBUMIN 2.7 g/dL (3.4-5.0); CALCIUM 8.4 mg/dL (8.5-10.1); CREATININE 3.3 mg/dL (0.7-1.3); PHOSPHORUS 5.2 mg/dL (2.5-4.9); POTASSIUM 3.7 mmol/L (3.5-5.1)
[2019-08-23 07:33] VITALS: BP 138/40
[2019-08-23 16:02] VITALS: BP 141/45
--- NOTE | 2019-08-23 19:13 | NUR ---
PT A&OX4. IV INTACT IN L FA. AMBULATES WITH WALKER AND STAND BY ASSIST. LY REMOVED AT 0800 THIS AM. BLADDER SCAN Q 6 HRS AND STRAIGHT CATH IF > 300. 345 CC REPORTED BY CASH TELLER @1800. STRAIGHT CATHED PT WITH 500CC RETURN. WILL CONT POC.
[2019-08-23 19:22] VITALS: BP 143/46
[2019-08-24 03:27] LABS: URINE BILIRUBIN NEGATIVE (Negative); URINE BLOOD TRACE (Negative); URINE CLARITY CLEAR; URINE COLOR YELLOW; URINE GLUCOSE-RANDOM* TRACE (Negative); URINE KETONES NEGATIVE (Negative); URINE LEUKOCYTES NEGATIVE (Negative); URINE NITRITE NEGATIVE (Negative); URINE PROTEIN (DIPSTICK) TRACE (Negative); URINE UROBILINOGEN 0.2 E.U./dl (0.2-1.0)
[2019-08-24 05:45] LABS: CREATININE 3.4 mg/dL (0.7-1.3); PHOSPHORUS 3.9 mg/dL (2.5-4.9)
--- NOTE | 2019-08-24 05:59 | NUR ---
PT AMBULATING TO BATHROOM WITH WALKER AND ASSIST X1 AND IS TOLERATING FAIR. TRAMADOL PROVIDING PAIN RELIEF. [facility]. RESTING COMFORTABLY. NO NEEDS VOICED. CALL LIGHT WITHIN REACH. WILL CONTINUE TO PROVIDE FREQUENT OBSERVATION.
[2019-08-24 07:20] VITALS: BP 134/41
--- NOTE | 2019-08-24 10:25 | NUR ---
REFERRAL FAXED TO [facility]. CONFIRMED WITH CATHY THAT THEY RECEIVED REFERRAL AND PATIENT WILL PROBABLY BE DISCHARGED TODAY. SHE SAID THEY ARE REVIEWING. DC TO FOLLOW.
[2019-08-24 15:20] VITALS: BP 148/42
[2019-08-24 16:43] VITALS: BP 122/36
--- NOTE | 2019-08-24 17:15 | NUR ---
ANAMIKA received call from pt's requesting referral to be sent to [facility]. Insurance denied inpt acute rehab after peer to peer. [employer] planners faxed referral to [facility]. ANAMIKA received call from Rose Marie in admissions, who states that they are able to accept pt. Pt may have a copay, as they are not in-network with pt's insurance. Rose Marie to discuss copay with pt's . Pt not ready for discharge today. Rose Marie states they got insurance authorization and the auth is good for 7 days starting today. If pt is ready for discharge tomorrow, pt will need to be at the facility by noon tomorrow. They are not able to accept pt on Saturday. They would be able to accept pt on . ANAMIKA updated 4S RN CM and WAREHOUSE ANALYST. Following to assist as needed with discharge planning.
[2019-08-24 19:10] VITALS: BP 128/47
--- NOTE | 2019-08-24 19:41 | HC ---
[facility] [address] [place] [address] CONSULTATION Name: HORACE NAIR Room #: 434-P ADM IN .R.#: [id number] Admission: 08/12/19 Attend Phys: Wilmar Chaparro MD Discharge: Date of : 44 Report #: [id number] THIS REPORT FOR: //name// CC: Topher Gill DICTATED BY: Archie LEI (Jeremy) DATE OF SERVICE: 08/20/2019 CONSULTED BY: Dr. Bridger Koehler. CONSULTED TO: Dr. Ronak Nuñez. REASON FOR CONSULTATION: A possible pseudoaneurysm, left groin. HISTORY OF PRESENT ILLNESS: The patient was admitted from [facility] for shortness of breath and respiratory failure. We are consulted for left groin swelling. The patient did have a recent left femoral popliteal bypass done in June of this year by Dr. Pedro Brown at [facility]. As per note and the patient, surgery went well other than the patient developing cellulitis to the left lower extremity and was given antibiotics, which resulted in the patient developing C. diff colitis. The patient has been on a full run of oral vancomycin. PAST MEDICAL HISTORY: [place], coronary artery disease, chronic kidney disease, obstructive sleep apnea, hypertension, hyperlipidemia, diabetes mellitus, benign prostatic hypertrophy, glaucoma as stated previously, recent C. diff, COPD, peripheral vascular disease and anxiety. PAST SURGICAL HISTORY: The patient has had a CABG x 4, has had a recent left fem-pop bypass in 06/2019. The patient had a right femoral popliteal bypass in April of this year. He has had left knee arthroscopy, right knee arthroscopy and some kidney stones removed in the past. SOCIAL HISTORY: The patient prior to coming to the hospital lived at home with . The patient is , has 4 children. He quit smoking in April of this year; previous to that, 1 pack a day x 50 years. Rarely drinks alcohol. ALLERGIES: AMIODARONE, CAUSES HALLUCINATIONS; HYDROCODONE AND NIACIN. HOME MEDICATIONS: 1. Ceftriaxone. 2. Ipratropium/albuterol. 3. ProAir HFA. [facility] [address] [place] [address] CONSULTATION Name: HORACE NAIR Room #: 434-P [facility]#: [id number] Admission: 08/12/19 Attend Phys: Wilmar Chaparro MD Discharge: Date of : 42 Report #: [id number] 4. Flomax. 5. Plavix; however, has not taken Plavix as per the patient from the beginning of this month. 6. Metoprolol. 7. Norvasc. 8. Aspirin 81 mg. 9. Ultram. 10. Tylenol. 11. Guaifenesin. 12. Brimonidine tartrate 5 mL drops. 13. Timolol maleate 5 mL drops. 14. Zofran. 15. Protonix. 16. Lantus. 17. Latanoprost eyedrops. 18. Vitamin D3. REVIEW OF SYSTEMS: Completed. The patient does complain of some generalized fatigue and difficulty sleeping. Denies any headache, dizziness. Does have some difficulty hearing. Has some complaints of some shortness of breath, dyspnea on exertion. Denies orthopnea, wheezing or coughing. Denies chest pain, jaw pain, arm pain or murmurs. Denies any rashes. Does have slight psoriasis to his forehead. Denies eczema. Denies cold feet, night sweats or lack of concentration. Denies nausea, vomiting, diarrhea or constipation. Denies urinary symptoms; however, does have a Diggs catheter. Neurologically, denies seizures or neuropathies. Immunologic; denies lupus, rheumatoid arthritis or celiac disease. PHYSICAL EXAMINATION: VITAL SIGNS: Blood pressure is 150/56, pulse of 71, respirations 16, temperature is 36.8. The patient weighs 102.4 kg. GENERAL: The patient is well developed, well-nourished, is slightly obese, has normal speech and mentation. HEENT: Eyes are PERRLA. Is normocephalic. Gaze appearing conjugate in all positions. No evidence of nystagmus. CARDIOVASCULAR: Shows regular rate and rhythm, S1, S2. LUNGS: Fine crackles to the bases, otherwise clear. ABDOMEN: Soft, nontender. Bowel sounds present in all 4 quadrants. NEUROLOGIC: The patient moves all extremities with 5/5 strength. Cranial nerves 2-12 are examined and intact. The patient does have some healing wounds in bilateral lower extremities. I was able to palpate a pulse over bilateral femorals, as well as in the left medial knee I was able to palpate a pulse, presumably where the graft site is, and able to palpate dorsalis pedis, posterior tibial pulses on the left lower extremity. Lower extremities bilaterally appear to have good color and warm to touch. [facility] [address] [place] [address] CONSULTATION Name: HORACE NAIR Room #: 434-P [facility] IN M.R.#: [id number] Admission: 08/12/19 Attend Phys: Wilmar Chaparro MD Discharge: Date of : 42 Report #: [id number] LABORATORY DATA: As follows; sodium 137, potassium 3.5, chloride is 97, CO2 is 28, BUN is 83, creatinine is 3.2 with a GFR of 19, glucose is 147. ASSESSMENT: Acute kidney injury on chronic kidney disease. The patient with peripheral vascular disease, recent left femoral popliteal bypass. On ultrasound shows no pseudoaneurysm; large complex hematoma measuring 7.7 cm x 5.5 cm x 14.4 cm, does appear to be nonpulsatile. PLAN: We will continue to follow. He does not appear to have any surgical indication at this time. We will get a surveillance study, arterial, of the left lower extremity for the left fem-pop bypass. <ELECTRONICALLY SIGNED> By: Ronak Nuñez MD 08/24/19 1941 [id number] Ronak Nuñez MD /nt
[2019-08-25 04:20] VITALS: BP 134/52
--- NOTE | 2019-08-25 06:18 | NUR ---
PATIENT ALERT AND ORIENTED X4. DENIES PAIN. ANXIOUS TO GO TO REHAB TODAY. SLEPT VERY LITTLE. WAS UP FROM BED TO CHAIR ALL NIGHT. MOSTLY PACKED. LY PATENT. WILL TRY TO FIND LEG BAG FOR PATIENT.
[2019-08-25 06:26] LABS: HEMATOCRIT 30.8 % (42.0-52.0); MCH 30.2 pg (26.0-34.0); MCHC 32.5 g/dL (28.0-37.0); MCV 93.1 fL (80.0-100.0); RBC 3.31 mil/uL (4.50-6.00); RDW 16.9 % (10.5-14.5); WBC 9.6 thou/uL (4.0-11.0)
[2019-08-25 06:38] LABS: ALBUMIN 2.9 g/dL (3.4-5.0); CALCIUM 8.7 mg/dL (8.5-10.1); CREATININE 3.1 mg/dL (0.7-1.3); PHOSPHORUS 4.2 mg/dL (2.5-4.9); POTASSIUM 3.7 mmol/L (3.5-5.1)
[2019-08-25 09:03] VITALS: BP 127/42
[2019-08-25] MEDS ORDERED: DEMADEX20 MG PO (10:00)
[2019-08-25] MEDS ORDERED: LIPITOR40 MG PO (10:00)
[2019-08-25] MEDS ORDERED: IRON325 PO (10:00)
[2019-08-25] MEDS ORDERED: HUMALOG100 UNIT/1 SUBQ (10:00)
[2019-08-25] MEDS ORDERED: CHOLESTYRAMINE L4 GM PO (10:00)
[2019-08-25] MEDS ORDERED: METOLAZONE 5 MG5 MG PO (10:00)
[2019-08-25] MEDS ORDERED: TRAMADOL 50 MG50 MG PO (10:00)
[2019-08-25] MEDS ORDERED: ACETAMINOPHEN325 M1 PO (10:00)
[2019-08-25] MEDS ORDERED: LANTUS SUBQ (10:00)
[2019-08-25] MEDS ORDERED: CALTRATE-600 W1 EACH PO (10:00)
[2019-08-25] MEDS ORDERED: CYCLOBENZAPRINE5 MG PO (10:00)
[2019-08-25] MEDS ORDERED: MELATONIN5 M1 PO (10:00)
[2019-08-25] MEDS ORDERED: LIDOPATCH1 EACH TRANSDERM (10:00)
--- NOTE | 2019-08-25 10:09 | NUR ---
DISCHARGE NOTE: SW reviewed chart and spoke with nursing and attending physician. Pt is medically stable for discharge to [facility] today. Facility requests pt arrive by noon today. Wheelchair van transportation arranged through [employer] for 1100. SW met with pt at bedside to provide update. Pt is aware and agreeable with plan. SW spoke with pt's via phone to provide update and notify of transportation time. Pt's to meet pt at the facility. shoe planner to fax finalized discharge orders/summary when available. Chart copy requested. Nursing to call report. No additional SW needs identified at this time, but is available to assist should needs arise.
--- NOTE | 2019-08-25 16:44 | NUR ---
DC ORDERS RECEIVED. IV REMOVED FROML FA. DC ISTRUCTIONS AND SCRIPTS REVIEWED WITH PT. LY CATH INTACT, LEG BAG REPLACED. REPORT CALLED TO REHAB IN [place], SPOKE WITH RUSH NURSE RECEIVING PT. TRANSPORTATION PICKED UP BY [facility].
== END 2019-08-25 12:13 | DRG 871 ==
LOC: 3W 10:52 → 4S 08-21 15:24
PROVIDERS: Hospitalist; Internal Medicine; Internal Medicine Nephrology; Nurse Practitioner; ADMIT Internal Medicine
PROC: 5A09357 Assistance with Respiratory Ventilation, Less than 24 Consecutive Hours, Continuous Positive Airway Pressure (ICD-10-PCS; principal; 2019-08-12)
PROC: 5A09357 Assistance with Respiratory Ventilation, Less than 24 Consecutive Hours, Continuous Positive Airway Pressure (ICD-10-PCS; 2019-08-13)
PROC: 5A09357 Assistance with Respiratory Ventilation, Less than 24 Consecutive Hours, Continuous Positive Airway Pressure (ICD-10-PCS; 2019-08-14)
PROC: 5A09357 Assistance with Respiratory Ventilation, Less than 24 Consecutive Hours, Continuous Positive Airway Pressure (ICD-10-PCS; 2019-08-15)
PROC: 5A09357 Assistance with Respiratory Ventilation, Less than 24 Consecutive Hours, Continuous Positive Airway Pressure (ICD-10-PCS; 2019-08-16)
PROC: 5A09357 Assistance with Respiratory Ventilation, Less than 24 Consecutive Hours, Continuous Positive Airway Pressure (ICD-10-PCS; 2019-08-17)
PROC: 5A09357 Assistance with Respiratory Ventilation, Less than 24 Consecutive Hours, Continuous Positive Airway Pressure (ICD-10-PCS; 2019-08-18)
PROC: 5A09357 Assistance with Respiratory Ventilation, Less than 24 Consecutive Hours, Continuous Positive Airway Pressure (ICD-10-PCS; 2019-08-19)
PROC: 5A09357 Assistance with Respiratory Ventilation, Less than 24 Consecutive Hours, Continuous Positive Airway Pressure (ICD-10-PCS; 2019-08-20)
PROC: 5A09357 Assistance with Respiratory Ventilation, Less than 24 Consecutive Hours, Continuous Positive Airway Pressure (ICD-10-PCS; 2019-08-21)
PROC: 5A09357 Assistance with Respiratory Ventilation, Less than 24 Consecutive Hours, Continuous Positive Airway Pressure (ICD-10-PCS; 2019-08-22)
PROC: 5A09357 Assistance with Respiratory Ventilation, Less than 24 Consecutive Hours, Continuous Positive Airway Pressure (ICD-10-PCS; 2019-08-23)
DX: A41.9 Sepsis, unspecified organism (principal); J96.21 Acute and chronic respiratory failure with hypoxia; G92 Toxic encephalopathy; K29.71 Gastritis, unspecified, with bleeding; K55.21 Angiodysplasia of colon with hemorrhage; I50.23 Acute on chronic systolic (congestive) heart failure; N17.9 Acute kidney failure, unspecified; I13.0 Hypertensive heart and chronic kidney disease with heart failure and stage 1 through stage 4 chronic kidney disease, or unspecified chronic kidney disease; N39.0 Urinary tract infection, site not specified; D62 Acute posthemorrhagic anemia; A04.72 Enterocolitis due to Clostridium difficile, not specified as recurrent; N18.5 Chronic kidney disease, stage 5; I25.10 Atherosclerotic heart disease of native coronary artery without angina pectoris; E11.51 Type 2 diabetes mellitus with diabetic peripheral angiopathy without gangrene; E11.22 Type 2 diabetes mellitus with diabetic chronic kidney disease; J44.9 Chronic obstructive pulmonary disease, unspecified; R19.7 Diarrhea, unspecified; E78.5 Hyperlipidemia, unspecified; F41.9 Anxiety disorder, unspecified; E66.9 Obesity, unspecified; B96.1 Klebsiella pneumoniae [K. pneumoniae] as the cause of diseases classified elsewhere; G47.33 Obstructive sleep apnea (adult) (pediatric); N40.0 Benign prostatic hyperplasia without lower urinary tract symptoms; R13.10 Dysphagia, unspecified; E87.6 Hypokalemia; R19.09 Other intra-abdominal and pelvic swelling, mass and lump; M54.9 Dorsalgia, unspecified; R21 Rash and other nonspecific skin eruption; Z68.32 Body mass index [BMI] 32.0-32.9, adult; Z87.891 Personal history of nicotine dependence; Z95.1 Presence of aortocoronary bypass graft; Z88.5 Allergy status to narcotic agent; Z88.8 Allergy status to other drugs, medicaments and biological substances; Z80.0 Family history of malignant neoplasm of digestive organs; Z82.3 Family history of stroke
CPT/HCPCS: 10102; 10779; 10879

== ENCOUNTER 2019-10-12 19:03 | Inpatient (IN) | payer OTHER ==
[~2019-10-12] VITALS: Ht 172.7 cm; Wt 93.6 kg
[~2019-10-12 19:03] MED LIST: ACETAMINOPHEN325 M1 PO; ASA81BEC PO; ATHENOL325 MG PO; BRIMONIDINE TART5 ML EA. EYE; CALTRATE-600 W1 EACH PO; CEFTRIAXON1 GM/50 ML IV; CHOLESTYRAMINE L4 GM PO; CYCLOBENZAPRINE5 MG PO; DEMADEX20 MG PO; DORZOLAMIDE 2%10 ML EA. EYE; FLOMAX0.4 MG PO; HUMALOG100 UNIT/1 SUBQ; IPRAT-ALBUT 0.5-3 ML INH; IRON325 PO; LANTUS SUBQ; LATANOPROST EA. EYE; LIDOPATCH1 EACH TRANSDERM; LIPITOR40 MG PO; MELATONIN5 M1 PO; METOLAZONE 5 MG5 MG PO; NORVASC 2.5 MG2.5 M1 PO; ONDANSETRON4 MG/2 ML IV; PLAVIX 75 MG TA75 MG PO; PROAIR HFA8.5 GM INH; PROTONIX40 M2 PO; TIMOLOL MALEATE5 M2 OPHTHALMIC; TOPROL XL25 MG PO; TRAMADOL 50 MG50 MG PO; ULTRAM50 MG PO; VANACOF DM LIQ240 ML PO; VISBIOME 112.51 EACH PO; VITAMIN D3 PO
[2019-10-12 19:04] VITALS: BP 145/84
[2019-10-12 19:42] LABS: ABSOLUTE NEUTROPHILS 7.8 thou/uL (1.4-8.2); BASOPHILS 1.2 % (0.0-2.0); EOSINOPHILS 1.2 % (0.0-3.0); HEMATOCRIT 31.3 % (42.0-52.0); HEMOGLOBIN 9.9 gm/dL (14.0-18.0); MCHC 31.7 g/dL (28.0-37.0); MCV 94.5 fL (80.0-100.0); MONOCYTES 7.2 % (1.0-8.0); POLYS 82.4 % (36.0-66.0); RBC 3.31 mil/uL (4.50-6.00); RDW 16.5 % (10.5-14.5); WBC 9.5 thou/uL (4.0-11.0)
[2019-10-12 19:52] LABS: CALCIUM 8.7 mg/dL (8.5-10.1); CREATININE 1.9 mg/dL (0.7-1.3); POTASSIUM 5.3 mmol/L (3.5-5.1)
[2019-10-12 19:55] LABS: APTT 26.7 Seconds (24.5-32.8); PROTIME 10.6 Seconds (9.3-11.4)
[2019-10-12 20:03] LABS: ALBUMIN 2.9 g/dL (3.4-5.0); MAGNESIUM 1.7 mg/dL (1.8-2.4); TOTAL BILIRUBIN 0.5 mg/dL (<0.1-1.0); TOTAL PROTEIN 6.9 g/dL (6.4-8.2)
[2019-10-12 20:13] LABS: TROPONIN-I 6.18 ng/mL (<0.06)
[2019-10-12 20:23] LABS: PLATELET COUNT 267 thou/uL (150-400)
[2019-10-12 20:44] LABS: BE(vivo) -2.8 mmol/L (-2 to +3); HCO3 22.3 mmol/L (22.0-26.0); PCO2 39.9 mmHg (35.0-45.0); PO2 79.6 mmHg (80.0-100.0); pH 7.366 (7.360-7.450); sO2 95.4 % (92.0-98.0)
[2019-10-12 20:56] VITALS: BP 170/82
[2019-10-12 21:25] VITALS: BP 165/83
[2019-10-12 22:15] LABS: CHOLESTEROL 119 mg/dL (<200); HDL CHOLESTEROL 38 mg/dL (>40); LDL CHOLESTEROL 58 mg/dL (<100); SERUM ASSESSMENT Clear; TC:HDL 3.1 Ratio (Not establshd); TRIGLYCERIDE 118 mg/dL (<150); VLDL 24 mg/dL (<40)
[2019-10-12 22:59] VITALS: BP 163/89
[2019-10-13 00:21] LABS: URINE BILIRUBIN NEGATIVE (Negative); URINE BLOOD 1+ (Negative); URINE CLARITY CLEAR; URINE COLOR YELLOW; URINE GLUCOSE-RANDOM* NEGATIVE (Negative); URINE KETONES NEGATIVE (Negative); URINE LEUKOCYTES-REFLEX NEGATIVE (Negative); URINE NITRITE-REFLEX NEGATIVE (Negative); URINE PROTEIN (DIPSTICK) 2+ (Negative); URINE SPECIFIC GRAVITY 1.015 (1.005-1.035); URINE UROBILINOGEN 0.2 E.U./dl (0.2-1.0)
[2019-10-13 00:52] LABS: BACTERIA-REFLEX 1-9 Few /HPF (None Seen); CASTS None Seen /LPF (None Seen); CRYSTALS None Seen /LPF (None Seen); MUCUS 0-3 Light strn/LPF (None Seen); SQUAMOUS 0-3 Few /LPF (0-3); URINE RBC 3-10 Few /HPF (0-2); URINE WBC-REFLEX 0-5 Rare /HPF (0-5)
[2019-10-13 00:54] VITALS: BP 159/81
[2019-10-13 02:23] LABS: CALCIUM 8.6 mg/dL (8.5-10.1); CREATININE 1.8 mg/dL (0.7-1.3); POTASSIUM 4.4 mmol/L (3.5-5.1)
[2019-10-13 05:23] VITALS: BP 158/85
--- NOTE | 2019-10-13 07:48 | NUR ---
PT ARRIVED AT THE UNIT AROUND 2100, PT IS ALERT AND ORIENTEDX4 ACCOMPANIED BY , PT WAS AIRLIFTED FROM [facility] FOR ELEVATED, TROPONIN, COPD, NSTEMI, PT DENIES PAIN AND SOB AT THIS TIME, ADNISSION ASSESSMENT DONE, PT IS ST/ SR ON THE MONITOR, ASSESSMENTS CHARTED, CRITICAL TROPONIN CALLED TO DR. BROWN, NO NEW ORDERS, PT RESTED WELL
[2019-10-13 07:55] VITALS: BP 157/84
--- NOTE | 2019-10-13 08:20 | EKG ---
[facility] [place] [place] [address] ELECTROCARDIOGRAM REPORT Name: HORACE NAIR Room #: 204-P ADM IN M.R.#: [id number] Admission: 10/12/19 Attend Phys: Alejandro Amor Discharge: Date of : 44 Report #: [id number] THIS REPORT FOR: cc: MARCEL - No family physician/PCP FAM - No family physician/PCP Eliseo Espinoza MD ~ THIS REPORT FOR: //name// [facility] ED Test Date: 2019-10-12 Test Time: 19:04:49 Pat Name: HORACE NAIR Department: Room: [facility] Gender: M Autopsy Assistant: MADY : 1940 Requested By: Elier William Order Number: [id number] MD: Eliseo Espinoza Measurements Intervals [place] Rate: 109 P: -39 AR: 167 QRS: 71 QRSD: 149 T: 25 QT: 331 QTc: 446 Interpretive Statements Sinus tachycardia Supraventricular bigeminy Right bundle branch block Anteroseptal infarct, age indeterminate Compared to ECG 08/12/2019 18:11:15 Myocardial infarct finding now present Sinus rhythm no longer present Poor R-wave progression no longer present Electronically Signed On 10-13-2019 8:19:52 DIRECTOR OF PHYSICAL SECURITY by Eliseo Espinoza [email or web address] <ELECTRONICALLY SIGNED> By: Eliseo Espinoza MD 10/13/19818 03 03 Eliseo Espinoza MD /EPI
--- NOTE | 2019-10-13 08:22 | EKG ---
[facility] [place] [address] ELECTROCARDIOGRAM REPORT Name: HORACE NAIR Room #: 204-P ADM IN M.R.#: [id number] Admission: 10/12/19 Attend Phys: Alejandro Amor Discharge: Date of : 44 Report #: [id number] THIS REPORT FOR: cc: MARCEL - No family physician/PCP FAM - No family physician/PCP Eliseo Espinoza MD ~ THIS REPORT FOR: //name// [facility] Test Date: 2019-10-13 Test Time: 06:59:36 Pat Name: HORACE NAIR Department: Room: 204 Gender: M Dewaxer: ANN MARIE : 1940 Requested By: Della Mayer Order Number: [id number] MD: Eliseo Espinoza Measurements Intervals [place] Rate: 102 P: -7 WI: 164 QRS: 61 QRSD: 144 T: 3 QT: 375 QTc: 489 Interpretive Statements Sinus tachycardia Right bundle branch block Anteroseptal infarct, age indeterminate Compared to ECG 08/12/2019 18:11:15 Myocardial infarct finding now present Sinus rhythm no longer present Atrial premature complex(es) no longer present Poor R-wave progression no longer present Electronically Signed On 10-13-2019 8:21:50 DISTRIBUTION A CLASS LINEMAN by Eliseo Espinoza [email or web address] <ELECTRONICALLY SIGNED> By: Eliseo Espinoza MD 10/13/19 0821 8 8 Eliseo Espinoza MD /EPI
[2019-10-13 08:51] LABS: CREATININE 1.9 mg/dL (0.7-1.3); MAGNESIUM 1.7 mg/dL (1.8-2.4); POTASSIUM 4.6 mmol/L (3.5-5.1)
--- NOTE | 2019-10-13 08:57 | HC ---
[facility] [address] [place] [address] CONSULTATION Name: HORACE NAIR Room #: 204-P [facility] IN M.R.#: [id number] Admission: 10/12/19 Attend Phys: Alejandro Amor Discharge: Date of : 42 Report #: [id number] THIS REPORT FOR: cc: MARCEL - Claire family physician/PCP MARCEL - Claire family physician/PCP Jesse Ford MD ~ CC: [facility] physician/PCP Wilmar Chaparro DATE OF SERVICE: 10/12/2019 CARDIOLOGY CONSULTATION INDICATIONS: Dyspnea. HISTORY OF PRESENT ILLNESS: This is a 79-year-old gentleman with a history of CABG, congestive heart failure, chronic renal disease, COPD, hypertension, peripheral vascular disease, diabetes mellitus, presenting with shortness of breath. He was last admitted in 07/2019 with CHF secondary to diastolic dysfunction. His symptoms improved with diuresis. In addition, he had anasarca, due to chronic renal disease, improved with diuresis. The patient states that he has been dyspneic for quite some time as well as a cough. He denies any fever or chills. This morning, he had pressure across the chest area, starting around 6:00 a.m. today. It has been persistent all day long. A visiting nurse [place] a troponin level, reportedly abnormal and he was instructed to come to the hospital. He was air-flighted to [facility] for further evaluation. He reports that his pain has improved. He continues to have dyspnea, requiring oxygen therapy. He denies any episodes of nausea, diarrhea or fevers. He does have orthopnea. CABG x 4 in 2006. PVD with right lower extremity bypass in 04/2019. Followed by a left lower extremity peripheral bypass in 06/2019, complicated by incisional cellulitis. After an antibiotic treatment, he did develop C. diff colitis. Hospitalized with CHF in 07/2019, echo revealed EF in the 50% range. History of chronic kidney disease, followed by Dr. Payne. COPD, quit smoking last year. Diabetes mellitus, hypertension, and hyperlipidemia. ALLERGIES: Include ACETAMINOPHEN, AMIODARONE, and OXYCODONE. MEDICATIONS: At home include antibiotics, insulin, amlodipine 2.5 daily, aspirin, albuterol inhaler, Protonix, Toprol-XL 25 mg daily, Plavix 75 mg daily, Lipitor 40 mg daily, torsemide 40 mg b.i.d., Zaroxolyn 5 mg daily. SOCIAL HISTORY: Denies tobacco use. FAMILY HISTORY: Negative for premature CAD. [facility] [address] [place] [address] CONSULTATION Name: HORACE NAIR Room #: 204-P [facility] IN [facility]#: [id number] Admission: 10/12/19 Attend Phys: Alejandro Amor Discharge: Date of : 42 Report #: [id number] REVIEW OF SYSTEMS: A full 10-point review of systems performed, only the pertinent positives and negatives are described in the HPI. PHYSICAL EXAMINATION: VITAL SIGNS: Blood pressure is 140/90, heart rate is 109 beats per minute. GENERAL APPEARANCE: This is an elderly appearing male, in mild distress. HEENT: Normocephalic, atraumatic. Oral mucosa moist. NECK: Supple, positive JVD. LUNGS: Decreased breath sounds with crackles at the bases. CARDIAC: Distant heart sounds, S1, S2 positive. ABDOMEN: Protuberant, soft, nontender. EXTREMITIES: No cyanosis, positive bilateral edema. LABORATORY VALUES: Pending. ECG reveals sinus tachycardia with frequent APCs, right bundle branch block, anteroseptal NE, nonspecific ST segment abnormality. ASSESSMENT AND PLAN: 1. Congestive heart failure, acute on chronic diastolic heart failure. We would diurese with intravenous Lasix at this time. Repeat an echocardiogram. Continue with afterload reduction. 2. Coronary artery disease/coronary artery bypass graft/chest pain, reportedly with minimal troponin elevation. Continue to monitor troponin levels. No active signs for an ST elevation NE at this time. In addition, he is at high risk for complications with a cardiac catheterization given his comorbid conditions of peripheral vascular disease and chronic kidney disease. 3. Diabetes mellitus, continue with insulin and check fingersticks. May benefit from an endocrine consult. 4. Chronic obstructive pulmonary disease, may have underlying upper respiratory infection. Check chest x-ray and continue with inhalers. 5. Chronic kidney disease, check creatinine and may need Nephrology followup during this admission. 6. Hypertension, continue with medications. Avoid VITOR inhibitor/ARB due to renal insufficiency. 7. Hypercholesterolemia, continue with statin therapy. <ELECTRONICALLY SIGNED> By: Jesse Ford MD 10/13/19 0857 [id number] Jesse Ford MD /nt
[2019-10-13 12:40] VITALS: BP 150/72
--- NOTE | 2019-10-13 13:31 | 2DMMODE ---
[facility] [address] [place] [address] 2 D/M-MODE ECHOCARDIOGRAM Name: HORACE NAIR Room #: 204-P ADM IN M.R.#: [id number] Admission: 10/12/19 Attend Phys: Alejandro Amor Discharge: Date of : 44 Report #: [id number] THIS REPORT FOR: cc: FAM - No family physician/PCP FAM - No family physician/PCP Jesse Ford MD ~ APPROVED REPORT Study performed: 10/13/2019 10:56:33 EXAM: Comprehensive 2D, Doppler, and color-flow Echocardiogram Patient Location: Bedside Room #: 204 Status: routine BSA: 2.10 HR: 101 bpm BP: 158/85 mmHg Other Information Study Quality: Adequate Indications COPD CAD Chest Pain MD, HTN, CABG, HLD Echo Enhancing Agent Indication: MD, 2D Dimensions RVDd: 45.75 mm IVSd: 12.67 (7-11mm) LVOT Diam: 19.68 (18-24mm) LVDd: 57.18 mm PWd: 12.84 (7-11mm) Ascending Ao: 23.30 (22-36mm) LVDs: 48.27 (25-40mm) Aortic Root: 31.16 mm Volumes Left Atrial Volume (Systole) Single Plane 4CH: 66.29 mL Single Plane 2CH: 51.20 mL LA ESV Index: 30.00 mL/m2 Aortic Valve [facility] [address] [place] [address] 2 D/M-MODE ECHOCARDIOGRAM Name: HORACE NAIR Room #: 204-P ADM IN M.R.#: [id number] Admission: 10/12/19 Attend Phys: Alejandro Perdomo Discharge: Date of : 44 Report #: [id number] Peak Andres.: 2.13 m/s AO Peak Gr.: 18.09 mmHg LVOT Max P.68 mmHg AO Mean Gr.: 11.18 mmHg LVOT Mean P.13 mmHg AO V2 Mean: 1.63 m/s LVOT Max V: 0.96 m/s AO V2 VTI: 42.17 cm LVOT Mean V: 0.69 m/s ASHA (VTI): 1.42 cm2 LVOT V1 VTI: 19.73 cm ASHA Vmax: 1.37 cm2 AI Vmax: 3.68 m/s SV (LVOT): 60.01 mL AI Randall: 5.77 m/s2 AI PHT: 185.48 ms Mitral Valve MV Peak Gr.: 9.06 mmHg MV Mean Gr.: 5.47 mmHg MV Max Andres.: 1.50 m/s MV Mean Andres.: 1.10 m/s MV VTI: 244.64 mm MVA VTI: 245.30 mm2 MV PHT: 32.15 ms MVA (PHT): 6.84 cm2 IVRT: 46.14 ms Pulmonary Valve PV Peak Andres.: 0.97 m/s PV Peak Gr.: 3.76 mmHg Pulmonary Vein P Vein S: 0.39 m/s P Vein A: 0.27 m/s P Vein D: 0.52 m/s P Vein S/D Ratio: 0.75 Tricuspid Valve TR Peak Andres.: 3.20 m/s RAP Estimate: 15.00 mmHg TR Peak Gr.: 40.98 mmHg PA Pressure: 56.00 mmHg Left Ventricle Left ventricle is mildly dilated. Regional wall motion abnormalities. Mild concentric left ventricular hypertrophy. Left ventricular systolic function is moderately decreased. LVEF is 35-40%. This study is not technically sufficient to allow evaluation of the LV diastolic function due to mitral stenosis. Right Ventricle Right ventricle is mildly dilated. The right ventricular systolic function is normal. [facility] [address] [place] [address] 2 D/M-MODE ECHOCARDIOGRAM Name: HORACE NAIR Room #: 204-P [facility] IN .R.#: [id number] Admission: 10/12/19 Attend Phys: Alejandro Perdomo Discharge: Date of : 44 Report #: [id number] Atria The left atrium size is normal. LA volume index 30 ml/m^2. The right atrium size is normal. Aortic Valve The aortic valve is suboptimally visualized. Mild to moderate aortic regurgitation. There is mild to moderate aortic stenosis. Calculated aortic valve area is 1.3 cm2 with maximum pressure gradient of 17 mmHg and mean pressure gradient of 11 mmHg. Mitral Valve Moderate mitral annular calcification and resricted posterior leaflet. Mild mitral regurgitation. Tricuspid Valve The tricuspid valve is normal in structure. Mild to moderate tricuspid regurgitation. Estimated pulmonary artery pressure of 56 mmHg. Pulmonic Valve The pulmonary valve is normal in structure. Mild pulmonic regurgitation. Great Vessels The aortic root is normal in size. The ascending aorta is suboptimally visualized, appears normal in dimension. IVC is dilated and collapses <50% with inspiration. Pericardium There is no pericardial effusion. <Conclusion> Left ventricle is mildly dilated. Mild concentric left ventricular hypertrophy. Left ventricular systolic function is moderately decreased. Regional wall motion abnormalities. Right ventricle is mildly dilated. Mild to moderate aortic regurgitation. There is mild to moderate aortic stenosis. Mild mitral regurgitation. Moderate mitral annular calcification and resricted posterior leaflet. [address] [address] 2 D/M-MODE ECHOCARDIOGRAM Name: HORACE NAIR Room #: 204-P [facility] IN .#: [id number] Admission: 10/12/19 Attend Phys: Alejandro Perdomo Discharge: Date of : 44 Report #: [id number] Mild to moderate tricuspid regurgitation. Estimated pulmonary artery pressure of 56 mmHg. <ELECTRONICALLY SIGNED> By: Jesse Ford MD 10/13/19 1330 1330 1330 Jesse Ford MD /TOO
[2019-10-13] MEDS ORDERED: KLOR-CON 10 ER10 MEQ PO (15:10)
[2019-10-13] MEDS ORDERED: ROPINIROLE HCL0.5 MG PO (15:12)
[2019-10-13 15:55] VITALS: BP 129/99
--- NOTE | 2019-10-13 17:42 | NUR ---
ASSUMED CARE AT SHIFT CHANGE,ALERT AND ORIENTED X4. VSS AND AFEBRILE.DR REHMAN NOTIFIED WITH CRITICAL VALUES. ASSESSMENT DOCUMENTED, AND MED REC VERIFIED WITH PATIENT HOME MEDS. MEDS SENT HOME WITH SPOUSE. C/O CHEST PRESSURE WHEN AMBULATING, AND REPORTS RELIEFE WHEN SEATED. SCHEDULED MEDS GIVEN AND WILL CONTINUE WITH POC.
[2019-10-13 21:10] VITALS: BP 121/46
[2019-10-14 00:06] LABS: GLYCOHEMOGLOBIN (HGB A1C) 6.7 % (4.8-5.6)
[2019-10-14 03:29] VITALS: BP 138/68
--- NOTE | 2019-10-14 04:43 | NUR ---
ASSUMED PT CARE AT 1900. PT IS ALERT AND ORIENTED. FAMILY AT BEDSIDE WITH PT. PT IS SITTING IN CHAIR. FALL PRECAUTION IN PLACE. FOLET CATH IN PLACE. ASSESSMENT COMPLETED AND DOCUMENTED. SCHEDULED MEDS ADMINISTERED TO PT. TOLERATED PO INTAKE. PT WAS SLEEPING WELL UP UNTIL ABOUT 0300 AM WHEN HE BECAME DELIRIOUS AND CONFUSED. PT STARTED TAKING OFF CPAP MACHINE AND O2 PULSE OXIMETER. THIS INCIDENCE OCCURED TWICE. PT WAS REORIENTED AND HE CALMED DOWN. CONTINUED TO MONITOR PT. DENIES ANY FURTHER NEEDS AT THIS TIME.
[2019-10-14 05:41] LABS: HEMATOCRIT 30.1 % (42.0-52.0); HEMOGLOBIN 9.5 gm/dL (14.0-18.0); MCH 29.6 pg (26.0-34.0); MCHC 31.5 g/dL (28.0-37.0); MCV 93.8 fL (80.0-100.0); RBC 3.2 mil/uL (4.50-6.00); RDW 16.1 % (10.5-14.5)
[2019-10-14 05:57] LABS: CALCIUM 8.4 mg/dL (8.5-10.1); CREATININE 2.3 mg/dL (0.7-1.3); POTASSIUM 4.5 mmol/L (3.5-5.1)
[2019-10-14 06:06] LABS: % SATURATION 19 % (20-39); IRON 40 ug/dL (65-175); TIBC 215 ug/dL (250-450)
[2019-10-14 07:30] VITALS: BP 125/69
--- NOTE | 2019-10-14 08:25 | EKG ---
[facility] [place] [address] ELECTROCARDIOGRAM REPORT Name: HORACE NAIR Room #: 204- ADM IN M.R.#: [id number] Admission: 10/12/19 Attend Phys: Alejandro Amor Discharge: Date of : 44 Report #: [id number] THIS REPORT FOR: cc: MARCEL - Claire family physician/PCP MARCEL - No family physician/PCP Eliseo Espinoza MD ~ THIS REPORT FOR: //name// [facility] Test Date: 2019-10-14 Test Time: 07:05:00 Pat Name: HORACE NAIR Department: Room: 204 Gender: M Teacher Adventure Education: Gerard CLEARY : 1940 Requested By: Matheus Toro Order Number: [id number] MD: Eliseo Espinoza Measurements Intervals [place] Rate: 83 P: 28 AR: 204 QRS: 54 QRSD: 152 T: 32 QT: 386 QTc: 454 Interpretive Statements Sinus rhythm Right bundle branch block Compared to ECG 10/13/2019 06:59:36 Sinus tachycardia no longer present Myocardial infarct finding no longer present Electronically Signed On 10-14-2019 8:24:32 POKER ROOM MANAGER by Eliseo Espinoza [email or web address] <ELECTRONICALLY SIGNED> By: Eliseo Espinoza MD 10/14/19 0824 4 Eliseo Espinoza MD /EPI
[2019-10-14 11:30] VITALS: BP 11/59
[2019-10-14 17:00] VITALS: BP 128/63
--- NOTE | 2019-10-14 17:14 | NUR ---
Met with patient he resides at home with spouse. He reports he has a pallative care Rn that comes 2x a week and home health care. He cannot recall agency. Spoke with . Patient has [facility] RN practioner 2x a week. He has home health care with [facility]. reports good care with agencies. Patient has been in/out of [facility]. He has been at [facility] and both patient and report not a good stay. Goal to dc home with resumed HH. patient has a walker but has not needed. Patient has a hospital bed and toilet riser at home. PCP is Dr Ugarte and planned f/u with Dr Brink for pulmonary.
--- NOTE | 2019-10-14 18:16 | NUR ---
ASSUMED CARE OF PT AT SHIFT CHANGE. ASSESSMENTS ARE CHARTED. MEDS GIVEN PER OCT. PT A&OX4. NO C/O PAIN. WORKED WITH PTNick LY IN PLACE. 1200 FLUID RESTRICTION. WILL CONTINUE TO MONITOR AND FOLLOW POC.
[2019-10-14 20:04] VITALS: BP 123/66
[2019-10-15] VITALS (7 sets, daily range): BP systolic 108–133; BP diastolic 55–77
--- NOTE | 2019-10-15 04:13 | NUR ---
ASSESSMENTS CHARTED, MEDS CHARTED GIVEN. PATIENT SITTING IN RECLINER AT START OF SHIFT. CONFUSED ABOUT WHERE HE IS AND WHAT TIME OF YEAR IT IS. SINUS ARRYTHMIA/SR WITH BBB ON TELEMETRY. ROOM AIR DURING DAY, CPAP AT NIGHT. HAS LY, BOWEL MOVEMENT TONIGHT. ACHS ON SSI. UP WITH ASSIST X 1. HAS RED BOTTOM. DENIES PAIN. VSS. PLAN OF CARE IS TO MEDICALLY MANAGE CARDIAC CONDITION.
[2019-10-15 06:18] LABS: ALBUMIN 2.8 g/dL (3.4-5.0); CREATININE 2.4 mg/dL (0.7-1.3); PHOSPHORUS 5.1 mg/dL (2.5-4.9); POTASSIUM 4.7 mmol/L (3.5-5.1)
[2019-10-15] MEDS ORDERED: IMDUR 60 MG TAB60 M1 PO (08:47)
--- NOTE | 2019-10-15 13:41 | NUR ---
ASSUMED CARE OF PT AT SHIFT CHANGE. ASSESSMENTS CHARTED. MEDS GIVEN PER OCT. PT A&OX4. NO C/O PAIN. ALIYAH TRAVIS'D. PT URINATED BEFORE LEAVING. DISCHARGE ORDERS AND INSTRUCTIONS COMPLETE. TELE AND IV DC'D. PT LEFT IN WHEELCHAIR WITH VOLUNTEER, AND SON TO PRIVATE CAR.
--- NOTE | 2019-10-15 15:32 | NUR ---
Pt dc'd home today. No home o2 indicated. HH orders noted and pt was on [facility] prior to [facility]. [facility] alerted to dc and will resume. Dc senior materials planner to fax the orders to intake. No other needs noted.
--- NOTE | 2019-10-15 16:43 | NUR ---
FAXED DC ORDERSS/SUMMARY TO [facility] SPOKE WITH MONIE IN INTAKE SHE RECEIVED ORDERS AND WILL NOTIFY PT TIME OF VISITS.
[2019-10-22 14:36] VITALS: BP 130/59
== END 2019-10-15 13:28 | disposition home health service (06) | DRG 280 ==
LOC: ER 19:03 → EROBS 20:26 → 2N 20:26 → ENTRNSPT 10-15 13:16 → 2N 10-15 13:28
PROVIDERS: Emergency Medicine; Internal Medicine; Nurse Practitioner Family; ADMIT Hospitalist
DX: I21.4 Non-ST elevation (NSTEMI) myocardial infarction (principal); I50.23 Acute on chronic systolic (congestive) heart failure; J96.01 Acute respiratory failure with hypoxia; I13.0 Hypertensive heart and chronic kidney disease with heart failure and stage 1 through stage 4 chronic kidney disease, or unspecified chronic kidney disease; J91.8 Pleural effusion in other conditions classified elsewhere; N18.4 Chronic kidney disease, stage 4 (severe); E78.5 Hyperlipidemia, unspecified; E11.22 Type 2 diabetes mellitus with diabetic chronic kidney disease; H40.9 Unspecified glaucoma; E11.51 Type 2 diabetes mellitus with diabetic peripheral angiopathy without gangrene; D50.9 Iron deficiency anemia, unspecified; F41.9 Anxiety disorder, unspecified; J44.9 Chronic obstructive pulmonary disease, unspecified; G47.33 Obstructive sleep apnea (adult) (pediatric); I25.10 Atherosclerotic heart disease of native coronary artery without angina pectoris; K55.20 Angiodysplasia of colon without hemorrhage; Z79.891 Long term (current) use of opiate analgesic; Z87.891 Personal history of nicotine dependence; Z79.899 Other long term (current) drug therapy; Z95.1 Presence of aortocoronary bypass graft; Z88.5 Allergy status to narcotic agent; Z88.8 Allergy status to other drugs, medicaments and biological substances
CPT/HCPCS: 10081

== ENCOUNTER 2021-07-02 16:02 | Inpatient (IN) | payer OTHER ==
[~2021-07-02] VITALS: Ht 172.7 cm; Wt 88.3 kg
[~2021-07-02 16:02] MED LIST changes: +IMDUR 60 MG TAB60 M1 PO; +KLOR-CON 10 ER10 MEQ PO; +ROPINIROLE HCL0.5 MG PO
[2021-07-02 16:03] VITALS: BP 136/65
[2021-07-02 17:05] LABS: CALCIUM 8.3 mg/dL (8.5-10.1); CREATININE 2.6 mg/dL (0.7-1.3); POTASSIUM 3.9 mmol/L (3.5-5.1)
[2021-07-02 17:28] LABS: ABSOLUTE NEUTROPHILS 7.5 thou/uL (1.4-8.2); BASOPHILS 0.7 % (0.0-2.0); EOSINOPHILS 1.2 % (0.0-3.0); HEMATOCRIT 35.8 % (42.0-52.0); HEMOGLOBIN 11.2 gm/dL (14.0-18.0); LYMPHOCYTES 5.5 % (24.0-44.0); MCH 24.2 pg (26.0-34.0); MCHC 31.3 g/dL (28.0-37.0); MCV 77.3 fL (80.0-100.0); MONOCYTES 9.7 % (1.0-8.0); PLATELET COUNT 260 thou/uL (150-400); POLYS 82.9 % (36.0-66.0); RBC 4.63 mil/uL (4.50-6.00); RDW 18.6 % (10.5-14.5)
[2021-07-02 17:51] LABS: ANISOCYTOSIS 2+; POIKILOCYTOSIS 2+
[2021-07-02 17:52] LABS: HYPOCHROMASIA 2+; MICROCYTES 1+; OVALOCYTES 1+; TARGET CELLS FEW
[2021-07-02] MEDS ORDERED: ANORO ELLIPTA1 EACH INH (22:10)
[2021-07-02] MEDS ORDERED: VAZALORE81 MG PO (22:11)
[2021-07-02] MEDS ORDERED: BRIMONIDINE 0.110 ML OPHTHALMIC (22:12)
[2021-07-02] MEDS ORDERED: FLEXERIL PO (22:13)
[2021-07-02] MEDS ORDERED: DORZOLAMIDE-TI1 EACH OPHTHALMIC (22:14)
[2021-07-02] MEDS ORDERED: FINASTERIDE5 MG PO (23:15)
[2021-07-02] MEDS ORDERED: FLONASE 0.05%50 MCG NASAL (23:19)
[2021-07-02] MEDS ORDERED: GLIPIZIDE 10 MG10 MG PO (23:20)
[2021-07-02] MEDS ORDERED: IPRAT-ALBUT 0.5-3 ML NEB (23:24)
[2021-07-02] MEDS ORDERED: LANTUS SUBQ (23:26)
[2021-07-02] MEDS ORDERED: VYZULTA5 ML OPHTHALMIC (23:28)
[2021-07-02] MEDS ORDERED: SUPER THERAVIT1 EACH PO (23:30)
[2021-07-02] MEDS ORDERED: MUPIROCIN 2% TOP (23:35)
[2021-07-02] MEDS ORDERED: NEURONTIN250 MG/5 M PO (23:37)
[2021-07-02] MEDS ORDERED: PROVENTIL 90 MCG INH (23:40)
[2021-07-02] MEDS ORDERED: FLOMAX0.4 MG PO (23:44)
[2021-07-02] MEDS ORDERED: TORSEMIDE20 MG PO (23:46)
[2021-07-02] MEDS ORDERED: TRIAMCINOLONE 0.1% TOP (23:49)
[2021-07-02] MEDS ORDERED: VITAMIN D3 PO (23:51)
[2021-07-03] VITALS (8 sets, daily range): BP systolic 115–154; BP diastolic 54–79
[2021-07-03 01:16] LABS: URINE BILIRUBIN NEGATIVE (Negative); URINE BLOOD NEGATIVE (Negative); URINE CLARITY CLEAR; URINE COLOR YELLOW; URINE GLUCOSE-RANDOM* NEGATIVE (Negative); URINE KETONES NEGATIVE (Negative); URINE LEUKOCYTES-REFLEX NEGATIVE (Negative); URINE NITRITE-REFLEX NEGATIVE (Negative); URINE PROTEIN (DIPSTICK) TRACE (Negative)
[2021-07-03] MEDS ORDERED: FLUTICASONE NASAL (03:14)
[2021-07-03] MEDS ORDERED: LATANOPROST OPHTHALMIC (03:19)
[2021-07-03] MEDS ORDERED: PROVENTIL 90 MCG INH (03:23)
[2021-07-03] MEDS ORDERED: ATIVAN PO (03:25)
[2021-07-03] MEDS ORDERED: IPRAT-ALBUT 0.5-3 ML NEB (03:28)
--- NOTE | 2021-07-03 07:17 | EKG ---
[place] [address] [facility] [place] [address] ELECTROCARDIOGRAM REPORT Name: HORACE NAIR Room #: 170-11 ADM IN M.R.#: [id number] Admission: 07/02/21 Attend Phys: Ken Gill MD Discharge: Date of : 44 Report #: [id number] [facility] ED Test Date: 2021-07-02 Test Time: 17:07:34 Pat Name: HORACE NAIR Department: Room: 170 Gender: M Certified Medical Records Coder: RANDAL : 1940 Requested By: Yogesh Valenzuela Order Number: [id number] MD: Vladislav Nino Measurements Intervals [place] Rate: 98 P: MS: QRS: -76 QRSD: 166 T: 45 QT: 433 QTc: 553 Interpretive Statements Atrial fibrillation Right bundle branch block Compared to ECG 10/14/2019 07:05:00 Ventricular premature complex(es) now present Sinus rhythm no longer present Electronically Signed On 07-03-2021 7:17:34 SUPERVISOR CUTTING DEPARTMENT by Vladislav Nino [email or web address] <ELECTRONICALLY SIGNED> By: Vladislav Nino MD, [facility] 07/03/21716 06 06 Vladislav Nino MD, FACC /EPI
--- NOTE | 2021-07-03 09:42 | EKG ---
[address] [address] ELECTROCARDIOGRAM REPORT Name: HORACE NAIR Room #: 170-11 ADM IN M.R.#: [id number] Admission: 07/02/21 Attend Phys: Ken Gill MD Discharge: Date of : 44 Report #: [id number] [facility] ED Test Date: 2021-07-02 Test Time: 18:19:49 Pat Name: HORACE NAIR Department: Room: 170 11 Gender: M Medical Insurance Coding Specialist: RANDAL : 1940 Requested By: Yogesh Valenzuela Order Number: [id number] MD: Matheus Toro Measurements Intervals [place] Rate: 97 P: FL: QRS: -82 QRSD: 174 T: 47 QT: 427 QTc: 543 Interpretive Statements Atrial fibrillation Right bundle branch block Compared to ECG 07/02/2021 17:07:34 No significant changes Electronically Signed On 07-03-2021 9:42:14 BEAUTY ADVISOR by Matheus Toro [email or web address] <ELECTRONICALLY SIGNED> By: Matheus Toro MD, [facility] 07/03/2142 1819 1819 Matheus Toro MD, FACC /EPI
--- NOTE | 2021-07-03 10:39 | 2DMMODE ---
[facility] [place] [address] 2 D/M-MODE ECHOCARDIOGRAM Name: HORACE NAIR Room #: 170-11 ADM IN M.R.#: [id number] Admission: 07/02/21 Attend Phys: Ken Gill MD Discharge: Date of : 44 Report #: [id number] THIS REPORT FOR: cc: Topher Ugarte MD, James E. MD Santiago, Patrick MD [facility] ~ APPROVED REPORT Study performed: 07/03/2021 10:58:06 EXAM: Comprehensive 2D, Doppler, and color-flow Echocardiogram Patient Location: ER Status: routine BSA: 2.00 HR: 80 bpm BP: 116/72 mmHg Rhythm: Afib/RBBB Other Information Study Quality: Adequate Indications Cough, short of breath, leg swelling. Hx: MN, CABG, COPD. 2D Dimensions IVSd: 8.87 (7-11mm) LVOT Diam: 19.98 (18-24mm) LVDd: 61.20 mm PWd: 11.41 (7-11mm) Ascending Ao: 32.33 (22-36mm) LVDs: 55.20 (25-40mm) Left Atrium: 44.88 (27-40mm) Aortic Root: 34.88 mm Volumes Left Atrial Volume (Systole) Single Plane 4CH: 70.74 mL Single Plane 2CH: 102.42 mL LA ESV Index: 47.00 mL/m2 Aortic Valve AoV Peak Andres.: 2.12 m/s AO Peak Gr.: 18.11 mmHg LVOT Max P.68 mmHg AO Mean Gr.: 9.99 mmHg AO V2 Mean: 1.38 m/s LVOT Max V: 0.65 m/s [facility] [address] [place] [address] 2 D/M-MODE ECHOCARDIOGRAM Name: HORACE NAIR Room #: 170- ADM IN [facility]#: [id number] Admission: 07/02/21 Attend Phys: Ken Gill MD Discharge: Date of : 42 Report #: [id number] V2 VTI: 42.99 cm ASHA Vmax: 0.95 cm2 Mitral Valve E/A Ratio: 1.4 MV Decel. Time: 145.08 ms MV E Max Andres.: 1.06 m/s MV A Andres.: 0.74 m/s MV PHT: 42.07 ms IVRT: 73.82 ms Pulmonary Valve PV Peak Andres.: 0.59 m/s PV Peak Gr.: 1.41 mmHg Tricuspid Valve TR Peak Andres.: 2.90 m/s RAP Estimate: 15.00 mmHg TR Peak Gr.: 34.00 mmHg PA Pressure: 49.00 mmHg Left Ventricle Left ventricle is mild to moderately dilated. There is normal left ventricular wall thickness. Left ventricular systolic function is severely decreased. LVEF is 20-25%. This study is not technically sufficient to allow evaluation of the LV diastolic function due to atrial fibrillation. Right Ventricle Right ventricle is dilated. Right ventricle is hypokinetic. Atria Moderate biatrial enlargement. Aortic Valve Aortic valve is moderately calcified. Mild aortic regurgitation. Moderate aortic stenosis (ASHA by continuity equation is 1.0cm2). Mitral Valve Mitral valve leaflets are thickened and calcified. Mild mitral regurgitation. No evidence of mitral valve stenosis. Tricuspid Valve The tricuspid valve is normal in structure. Moderate to severe tricuspid regurgitation. Estimated PAP is 45-50mmHg. [facility] [place] [address] 2 D/M-MODE ECHOCARDIOGRAM Name: HORACE NAIR Room #: 170-11 ADM IN R#: [id number] Admission: 07/02/21 Attend Phys: Ken Gill MD Discharge: Date of : 42 Report #: [id number] Pulmonic Valve The pulmonary valve is normal in structure. Mild pulmonic regurgitation. Great Vessels The aortic root is normal in size. The ascending aorta is normal in size. IVC is dilated and collapses <50% with inspiration. Pericardium There is no pericardial effusion. <Conclusion> Left ventricle moderately dilated Global hypokinesis ejection fraction 20-25% Right ventricle moderately dilated/hypokinetic Moderate biatrial enlargement Moderate aortic valve calcification Moderate aortic valve stenosis aortic valve area estimated 1 cm Aortic valve mean gradient of 10 mmHg, suspect underestimation due to LV systolic dysfunction Mild aortic valve insufficiency Moderate mitral annular calcification, posterior leaflet appears to be fixed Mild mitral valve insufficiency Moderate to severe tricuspid valve insufficiency pulmonary systolic pressure estimated 45-50 mmHg No pericardial effusion Normal aortic root size Study performed in atrial fibrillation <ELECTRONICALLY SIGNED> By: Vladislav Nino MD, FACC 07/03/21 1039 1039 1039 Vladislav Nino MD, FACC /INF
[2021-07-03 11:02] LABS: ALBUMIN 2.4 g/dL (3.4-5.0); CALCIUM 8.3 mg/dL (8.5-10.1); CREATININE 2.6 mg/dL (0.7-1.3); MAGNESIUM 2.4 mg/dL (1.8-2.4); POTASSIUM 3.8 mmol/L (3.5-5.1); TOTAL PROTEIN 6.3 g/dL (6.4-8.2)
[2021-07-03 11:04] LABS: TOTAL BILIRUBIN 3.7 mg/dL (0.2-1.0)
--- NOTE | 2021-07-03 15:39 | NUR ---
81 year old male presents to the ED on 07-03-21 via his spouse and private vehicle with complaints of dizziness, lightheadedness, mild confusion, slurred speech, cough, SOA, abdominal tenderness, BLE edema, and pale colored "oatmeal" stools x 3 weeks. The patient has been admitted and being treated for: Recurrent acute hypoxic respiratory failure, possible community acquired pneumonia, possible sepsis, large left pleural effusion, possible acute on chronic systolic heart failure, SCOTT, ATN and acute toxic encephalopathy. Per spouse the patient is CPAP intolerant and has LUIS ENRIQUE. Per ED record ID NOW is negative and patient vaccinated with Moderna in October of 2020. Patient's last contact with CM was 10-15 when discharged home with spouse with [facility]. At present the patient continues medical assessment and as this evolves CM will work with medical team and when therapy is able to engage with patient will review with attending therapy recommendations for discharge planning. The assessments notes that patient is A&O x4 and that the patients spouse Nikolai Jaime at [phone] and son Aren Jaime at [phone] remain as next of kin and main contacts.
--- NOTE | 2021-07-03 19:37 | NUR ---
THIS RN CALLS PT'S MELISSA AND LEAVES MESSAGE FOR HER TO CALL BACK
--- NOTE | 2021-07-04 01:25 | NUR ---
PT ARRIVED FROM ER @2030 A&OX4 WITH SOME FORGETFULLNESS. ADMISSION DONE AND PT ORIENTED TO THE UNIT. PT IMPULSIVE GETS UP TO VOID FALL PREC IN PLACE. BSG CHECKED NO INSULIN COVERAGE. TYELNOL GIVEN FOR PAIN. WEARS CPAP AT BEDTINE WILL CONT TO MONITOR.
[2021-07-04 03:28] LABS: HEMATOCRIT 34.4 % (42.0-52.0); HEMOGLOBIN 10.5 gm/dL (14.0-18.0); MCHC 30.7 g/dL (28.0-37.0); MCV 78.3 fL (80.0-100.0); RBC 4.39 mil/uL (4.50-6.00); RDW 19.1 % (10.5-14.5); WBC 9.5 thou/uL (4.0-11.0)
[2021-07-04 04:19] LABS: ALBUMIN 2.6 g/dL (3.4-5.0); CALCIUM 8.3 mg/dL (8.5-10.1); CREATININE 2.6 mg/dL (0.7-1.3); MAGNESIUM 2.5 mg/dL (1.8-2.4); PHOSPHORUS 6.3 mg/dL (2.6-4.7); POTASSIUM 4.2 mmol/L (3.5-5.1)
[2021-07-04 04:56] VITALS: BP 128/56
[2021-07-04 08:00] VITALS: BP 129/52
[2021-07-04 08:39] LABS: APTT 30.4 Seconds (24.5-32.8); INR 1.3
[2021-07-04 13:01] LABS: BF NUCLEATED CELLS 355 /mm3; BF RBC 1047 /mm3; TOTAL VOLUME 60 mL
[2021-07-04 13:02] LABS: CLARITY CLEAR; COLOR YELLOW
[2021-07-04 15:32] VITALS: BP 136/69
[2021-07-04 17:42] LABS: SOURCE THORACENTESIS
[2021-07-04 17:46] LABS: BF MACROPHAGE 8 %; BF NEUTROPHILS 10 %
[2021-07-04 19:41] VITALS: BP 120/55
[2021-07-05 03:37] VITALS: BP 130/53
--- NOTE | 2021-07-05 04:38 | NUR ---
PATIENT RESTINGIN IN HIS ROOM. PATIENT IS AA0X2 AT TIMES BUT MOSTLY IS AAOX1. HE REQUIRES FREQUENT REDIRECTION TO LEAVE MONITORING EQUIPMENT ON. PATIENT REFUSES TO WEAR HIS CPAP STATING THAT HE DOES NOT USUALLY WEAR IT AT HOME. PATIENT DID NOT SLEEP AT ALL DURING THIS SHIFT. HE HAS A DRY NON PRODUCTIVE COUGH. ROUTINELY GETTING UP FROM BED. WAS TAKEN TO THE RESTROOM NEARLY EVERY HOUR TO URINATE. PATIENT VOIDS 50-100 CC MOST TIMES GETTING UP. NO DISTENTION NOR ABDOMINAL TENDERNESS NOTED. PATIENT HAS PERIODS WHERE IT APPEARS IF HE IS HAVING SOME AUDIO HALLUCINATIONS HE IS TALKING TO SOMEBODY NOT PRESENT IN THE ROOM. ALL SAFETY PRECAUTIONS ARE IN PLACE. DENIES PAIN AT THIS TIME. WILL CONTINUE TO MONOTOR FOR CHANGES IN PATIENT STATUS.
[2021-07-05 06:02] LABS: ALBUMIN 2.6 g/dL (3.4-5.0); CALCIUM 8.4 mg/dL (8.5-10.1); PHOSPHORUS 6.7 mg/dL (2.5-4.9); POTASSIUM 4.5 mmol/L (3.5-5.1)
[2021-07-05 07:44] VITALS: BP 121/42
[2021-07-05 11:08] LABS: BODY FLUID ALBUMIN 0.5 g/dL (Not Estab.); BODY FLUID AMYLASE 25 U/L (()); BODY FLUID GLUCOSE 86 mg/dL (()); BODY FLUID LDH 96 IU/L (()); BODY FLUID PROTEIN 1.6 g/dL (())
--- NOTE | 2021-07-05 11:18 | NUR ---
spoke with who is interested in skilled rehab swing bed at [facility] unit. sp with admissions and faxed referral.
[2021-07-05 11:27] VITALS: BP 98/40
[2021-07-05 13:28] LABS: SOURCE THORACENTESIS
[2021-07-05 15:12] VITALS: BP 114/44
[2021-07-05 19:29] VITALS: BP 127/67
--- NOTE | 2021-07-06 02:17 | NUR ---
PATIENT HAS HAD A DIFFICULT NIGHT. HE IS CONFUSED AND ANXIOUS. AAOX1. WILL NOT COMPLY WITH SIMPLE COMMANDS. WILL NOT LEAVE O2 OR CPAP ON. ROUTINELY ATTEMPTS TO GET OUT OF BED. WHEN ASKED IF HE IS IN PAIN HE STATES NO. STATED THAT HE WANTED TO GET UP. WAS TRANSFERRED TO BEDSIDE CHAIR ONLY FOR A FEW MINUTES HE THEN STATED THAT HE WANTED TO GET IN BED. PATIENT APPEARS TO BE EXPERIENCING DELIRIUM HE HAS NOT SLEPT AT ALL TONIGHT. HE ALSO DID NOT SLEEP LAST NIGHT EITHER. DAY RN CALLED REGARDING PATIENT STATUS EARLIER TODAY BUT RECEIVED NO NEW ORDERS. IT IS NOTED THAT PATIENT MAINTAINS O2 AT 94-98 PERCENT WHETHER HE IS ON RA, OR BIPAP. REPORTS SHOW THAT HIS MOST RECENT CHEST XRAY SHOWS NEW FORMATION OF PNEUMOTHORAX. NOTIFIED ENFORCEMENT MANAGER TONIGHT ABOUT PATIENTS MENTAL CAPACITY. NEW ORDER WAS RECEIVED FOR BENADRYL 25MG IVP X 1 DOSE. AFTER APPROXIMATELY 2 HOURS PATIENT HAS SHOWN NO SIGNS OF IMPROVEMENT. HE CONTINUES TO MOAN IN BED AND SPEAK INCOMPREHENSIBLY. REFUSES TO SIT STILL. PATIENT APPEARS LETHARGIC BUT CONTINUES TO FIGHT SLEEPING. NOTIFIED ENFORCEMENT MANAGER AGAIN AND RECEIVED ORDER FOR HALDOL 5MG IVP X1. RN HAS HAD TO SIT AT BEDSIDE WHILE MEDICATION TAKES EFFECT. AT THIS CURRENT TIME PATIENT HAS YET TO REMAIN STILL. WILL CONTINUE TO MONITOR FOR CHANGES IN STATUS.
[2021-07-06 04:00] VITALS: BP 133/52
--- NOTE | 2021-07-06 05:25 | NUR ---
PATIENT CONTINUED TO HAVE ISSUES. HIS CONFUSION HAS INCREASED AND HE HAS BECOME AGITATED NOW. PATIENT HAS YET TO SLEEP AT ALL TONIGHT. THIS RN SAT AT HIS BEDSIDE FOR OVER 30 MINUTES TO TRY TO CALM HIM DOWN. SOON THIS RN VACATED THE ROOM THE PATIENT STARTED TO CLIMB OUT OF BED. STAFF ASSISTED PATIENT TO THE BEDSIDE RECLINER TO SEE IF IT WOULD HELP WITH PATIENT STATUS. PATIENT WOULD ONLY STAY SEATED FOR A FEW MOMENTS. HE WAS RECLINED AND HIS TRAY WAS PLACED IN FRONT OF HIM. HE PROCEEDED TO MOVE THE TRAY OUT OF THE WAY ABD MOVED TO THE EDGE OF THE CHAIR. PATIENT IS UNABLE TO VERBALIZE ANYTHING THAT WOULD BENEFIT HIM. HE IS NOW ASKING WHERE HE IS AT AND ASKING FOR THE NAME OF A FEMALE THAT IS BELIEVED TO BE HIS . PATIENT REMAINS 96% ON 2L LITERS NOW HE WILL NOT WEAR HIS CPAP. NOTIFIED PRODUCT SAFETY EXPERT ON DUTY AND RECEIVED ORDER FOR ATIVAN 1MG IVP X1 DOSE. WILL CONTINUE TO MONITOR.
[2021-07-06 05:30] LABS: ALBUMIN 2.5 g/dL (3.4-5.0); CALCIUM 8.4 mg/dL (8.5-10.1); CREATININE 3.3 mg/dL (0.7-1.3); PHOSPHORUS 7.4 mg/dL (2.5-4.9); POTASSIUM 4.9 mmol/L (3.5-5.1)
[2021-07-06 07:23] VITALS: BP 113/73
[2021-07-06 09:27] LABS: HEMATOCRIT 34.6 % (42.0-52.0); HEMOGLOBIN 10.4 gm/dL (14.0-18.0); MCH 23.9 pg (26.0-34.0); MCV 79.7 fL (80.0-100.0); RBC 4.35 mil/uL (4.50-6.00); RDW 19.6 % (10.5-14.5); WBC 9.5 thou/uL (4.0-11.0)
[2021-07-06 09:34] LABS: MAGNESIUM 2.7 mg/dL (1.8-2.4)
[2021-07-06 09:35] LABS: PHOSPHORUS 7.7 mg/dL (2.5-4.9)
[2021-07-06 09:57] LABS: HCO3 14.6 mmol/L (22.0-26.0); PCO2 31.4 mmHg (35.0-45.0); PO2 126.3 mmHg (80.0-100.0); sO2 98.2 % (92.0-98.0)
[2021-07-06 09:58] LABS: pH 7.284 (7.360-7.450)
[2021-07-06 11:03] LABS: URINE BILIRUBIN 1+ (Negative); URINE BLOOD NEGATIVE (Negative); URINE CLARITY SL CLOUDY; URINE COLOR YELLOW; URINE GLUCOSE-RANDOM* NEGATIVE (Negative); URINE KETONES NEGATIVE (Negative); URINE LEUKOCYTES-REFLEX NEGATIVE (Negative); URINE NITRITE-REFLEX NEGATIVE (Negative); URINE PROTEIN (DIPSTICK) TRACE (Negative); URINE SPECIFIC GRAVITY >= 1.030 (1.005-1.035)
--- NOTE | 2021-07-06 11:03 | NUR ---
Patient with AMS in restraints needing chest tube. Updated [facility] unit. Phys plans to speak with regarding cose status.
[2021-07-06 11:14] LABS: ICTOTEST (BILI CONFIRMATORY) Positive (Negative)
[2021-07-06 11:55] VITALS: BP 124/50
--- NOTE | 2021-07-06 15:49 | NUR ---
Spoke again with . She reports she spoke with family. She cont to want to cont aggresive treatment and start dialysis. She is agreeable to speak with hospice. patient has rec [facility] in past. She requests referral to [facility]. she requests phone call tomorrow as she cannot meet in person at this time. Faxed referral and sp with intake who will call in am. casemgt following.
[2021-07-06 16:45] VITALS: BP 115/66
[2021-07-06 19:45] VITALS: BP 123/65
[2021-07-07 04:07] VITALS: BP 110/56
[2021-07-07 08:00] VITALS: BP 116/62
--- NOTE | 2021-07-07 08:56 | NUR ---
PATIENT IN DIALYSIS AT START OF SHIFT. BUS INSPECTOR RELAYED MESSAGE FROM FAMILY MEMBER THAT THEY WERE CONTINUING FULL CARE UNTIL HIS DAUGHTER COULD GET HERE, THEN PATIENT WILL PROBABLY GO HOME ON HOSPICE.
[2021-07-07 11:49] LABS: URINE BLOOD 3+ (Negative); URINE GLUCOSE-RANDOM* NEGATIVE (Negative); URINE KETONES TRACE (Negative); URINE NITRITE-REFLEX NEGATIVE (Negative); URINE PROTEIN (DIPSTICK) 1+ (Negative); URINE SPECIFIC GRAVITY >= 1.030 (1.005-1.035)
[2021-07-07 12:00] VITALS: BP 81/46
[2021-07-07 12:02] LABS: URINE COLOR AMBER; URINE LEUKOCYTES-REFLEX 2+ (Negative)
[2021-07-07 12:03] LABS: ICTOTEST (BILI CONFIRMATORY) Negative (Negative); URINE BILIRUBIN NEGATIVE (Negative); URINE CLARITY HAZY
[2021-07-07 12:21] LABS: CASTS None Seen /LPF (None Seen); MUCUS 0-3 Light strn/LPF (None Seen); SQUAMOUS 0-3 Few /LPF (0-3); URINE RBC 1-2 Rare /HPF (NONE SEEN); URINE WBC-REFLEX 6-15 Few /HPF (0-5)
[2021-07-07 12:22] LABS: BACTERIA-REFLEX None Seen /HPF (None Seen); CRYSTALS None Seen /LPF (None Seen)
[2021-07-07 14:32] LABS: HEMATOCRIT 32.4 % (42.0-52.0); HEMOGLOBIN 10.1 gm/dL (14.0-18.0); MCH 24.1 pg (26.0-34.0); MCHC 31.3 g/dL (28.0-37.0); MCV 77.1 fL (80.0-100.0); RBC 4.2 mil/uL (4.50-6.00); RDW 19.2 % (10.5-14.5); WBC 12.2 thou/uL (4.0-11.0)
[2021-07-07 14:45] LABS: ALBUMIN 2.2 g/dL (3.4-5.0); CALCIUM 8.4 mg/dL (8.5-10.1); CREATININE 2.5 mg/dL (0.7-1.3); MAGNESIUM 2.4 mg/dL (1.8-2.4)
[2021-07-07 14:49] LABS: POTASSIUM 4.7 mmol/L (3.5-5.1)
--- NOTE | 2021-07-07 15:21 | NUR ---
Initially sp with and she spoke with [facility]. She reports they are delivering equiptment. She wants to cont to keep [facility] swing bed unit updated. [facility] unit does not accept dialysis patients. Updated . She had since sp with phys and interest in making patient pallative care. wants casemgt to inquuire into if [facility] allows inpatient hospital pallative care. Left messages with casemgt number have not rec return call. Sp with tobacco warehouse agent regarding visitors. informed can have 2-3 at a time. Other may not loiter at door or hallway they need to not be in building.
[2021-07-07 16:30] VITALS: BP 96/44
[2021-07-07 19:21] VITALS: BP 86/49
--- NOTE | 2021-07-08 01:48 | NUR ---
PATIENTS CARES WHERE ASSUMED AT SHIFT CHANGE. PATIENT IS PALATIVE CARE AND NURSIING WAS TOLD ON REPORT HE WAS COMFORT CARE AND CHECKING ACCU CHECKS EVERY OTHRE HOUR. LARRY WAS CALLED IN REGARDS TO THE ORDERS. THIS DID NOT MAKE SENSE TO HER EITHER. LARRY WAS COMMUNICATING BY TEXT WITH DOCTOR CATHI. DOCTORS ORDERED KEEP ALIVE UNTIL UNTIL FAMILY GEY HERE FROM [facility].
[2021-07-08 04:45] VITALS: BP 126/94
[2021-07-08 05:53] LABS: ALBUMIN 2.2 g/dL (3.4-5.0); CALCIUM 8.6 mg/dL (8.5-10.1); CREATININE 3.2 mg/dL (0.7-1.3); PHOSPHORUS 6.8 mg/dL (2.5-4.9); POTASSIUM 5.3 mmol/L (3.5-5.1)
[2021-07-08 07:59] VITALS: BP 93/74
--- NOTE | 2021-07-08 12:49 | NUR ---
0745: DR. NOBLE ROUNDED STATED HE SPOKE WITH THE AND THAT SHE WANTED PATIENT COMFORT CARE, GOT VERBAL ORDERS FROM TO DO COMFORT CARE. I SPOKE WITH THE AND INFORMED HER THAT HIS BLOOD SUGARS WERE LOW DESPITE GIVING HIM SUGAR. I ASKED HER IF SHE WAS SURE SHE WANTED NO TREATMENT DONE AND SHE SAID YES, KEEP HIM COMFORATABLE AND SHE WAS ON HER WAY IN. 0940: PATIENTS HEART STOPPED. CONFIRMED BY [address] WINKLER MADE AWARE, SHE ROUNDED AND PRONOUNCED TOD
== END 2021-07-08 09:40 | DRG 871 ==
LOC: ER 16:02 → 2N 17:47 → EROBS 17:47 → 2N 07-03 20:28
PROVIDERS: Emergency Medicine; Hospitalist; Internal Medicine; Internal Medicine Pulmonary Disease; ADMIT Internal Medicine; ATTEND Internal Medicine
PROC: 5A09357 Assistance with Respiratory Ventilation, Less than 24 Consecutive Hours, Continuous Positive Airway Pressure (ICD-10-PCS; principal; 2021-07-03)
PROC: 0W9B3ZZ Drainage of Left Pleural Cavity, Percutaneous Approach (ICD-10-PCS; 2021-07-04)
PROC: 5A09357 Assistance with Respiratory Ventilation, Less than 24 Consecutive Hours, Continuous Positive Airway Pressure (ICD-10-PCS; 2021-07-05)
PROC: 02HV33Z Insertion of Infusion Device into Superior Vena Cava, Percutaneous Approach (ICD-10-PCS; 2021-07-06)
PROC: 0W9B30Z Drainage of Left Pleural Cavity with Drainage Device, Percutaneous Approach (ICD-10-PCS; 2021-07-06)
PROC: 5A1D70Z Performance of Urinary Filtration, Intermittent, Less than 6 Hours Per Day (ICD-10-PCS; 2021-07-06)
PROC: B548ZZA Ultrasonography of Superior Vena Cava, Guidance (ICD-10-PCS; 2021-07-06)
PROC: B5181ZA Fluoroscopy of Superior Vena Cava using Low Osmolar Contrast, Guidance (ICD-10-PCS; 2021-07-06)
PROC: 5A09357 Assistance with Respiratory Ventilation, Less than 24 Consecutive Hours, Continuous Positive Airway Pressure (ICD-10-PCS; 2021-07-06)
PROC: 5A1D70Z Performance of Urinary Filtration, Intermittent, Less than 6 Hours Per Day (ICD-10-PCS; 2021-07-07)
DX: A41.9 Sepsis, unspecified organism (principal); I50.23 Acute on chronic systolic (congestive) heart failure; J96.01 Acute respiratory failure with hypoxia; J18.9 Pneumonia, unspecified organism; G92.8 Other toxic encephalopathy; N17.0 Acute kidney failure with tubular necrosis; J91.8 Pleural effusion in other conditions classified elsewhere; N18.4 Chronic kidney disease, stage 4 (severe); I13.0 Hypertensive heart and chronic kidney disease with heart failure and stage 1 through stage 4 chronic kidney disease, or unspecified chronic kidney disease; N39.0 Urinary tract infection, site not specified; I48.20 Chronic atrial fibrillation, unspecified; J93.83 Other pneumothorax; J44.0 Chronic obstructive pulmonary disease with (acute) lower respiratory infection; Z20.822 Contact with and (suspected) exposure to COVID-19; E78.5 Hyperlipidemia, unspecified; E11.51 Type 2 diabetes mellitus with diabetic peripheral angiopathy without gangrene; G47.33 Obstructive sleep apnea (adult) (pediatric); F41.9 Anxiety disorder, unspecified; I25.5 Ischemic cardiomyopathy; R41.0 Disorientation, unspecified; E11.649 Type 2 diabetes mellitus with hypoglycemia without coma; N40.1 Benign prostatic hyperplasia with lower urinary tract symptoms; Z66 Do not resuscitate; E66.9 Obesity, unspecified; R53.81 Other malaise; E11.22 Type 2 diabetes mellitus with diabetic chronic kidney disease; Z95.1 Presence of aortocoronary bypass graft; Z88.1 Allergy status to other antibiotic agents; Z87.442 Personal history of urinary calculi; Z88.6 Allergy status to analgesic agent; Z87.891 Personal history of nicotine dependence; Z68.29 Body mass index [BMI] 29.0-29.9, adult; Z51.5 Encounter for palliative care
CPT/HCPCS: 10081; 32100